=== PATIENT | male | born 1970 | race Caucasian/White ===

== ENCOUNTER → 2017-12-21 09:52 | Outpatient (REF) | payer OTHER, SELFPAY ==
[2017-12-21 14:11] LABS: Anion Gap 12.1 mEq/L (5-15); Blood Urea Nitrogen 12 mg/dL (7-18); Carbon Dioxide 26 mmol/L (21.0-32.0); Chloride 105 mmol/L (98-107); Creatinine,Serum 0.87 mg/dL (0.70-1.30); Estimated Glomerular Filt Rate 94 ml/min (>60); GFR (African American) 114 ML/MIN (>60); Glucose 86 mg/dL (74-106); Potassium 4.1 mmoL/L (3.5-5.1); Sodium 139 mmol/L (136-145)
== END ==
LOC: LAB 09:52
PROVIDERS: Visit Provider Nurse Practitioner Family
DX: R25.2 Cramp and spasm (principal)
CPT/HCPCS: 80048

== ENCOUNTER → 2018-05-19 11:02 | Outpatient (REF) | payer OTHER, SELFPAY ==
[2018-05-19 13:44] LABS: Amphetamine/Metha Screen,Urine Negative ng/mL (<1000); Barbiturates Screen,Urine Negative ng/mL (<200); Benzodiazepines Screen,Urine Negative ng/mL (200); Cannabinoid Screen,Urine Positive ng/mL (<50); Cocaine Screen,Urine Negative ng/g (<300); Methadone Screen,Urine Negative ng/mL (<300); Opiate Screen,Urine Negative ng/mL (<300); Phencyclidine Screen,Urine Negative ng/mL (<25)
== END ==
LOC: LAB 11:02
PROVIDERS: Visit Provider Nurse Practitioner Family
DX: M54.9 Dorsalgia, unspecified (principal); G62.9 Polyneuropathy, unspecified
CPT/HCPCS: 80305

== ENCOUNTER → 2019-02-13 08:24 | Outpatient (CLI) | payer OTHER, SELFPAY ==
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
== END ==
PROVIDERS: PCP Nurse Practitioner Family; Visit Provider Nurse Practitioner Family
DX: R05 Cough (principal)
CPT/HCPCS: 71046

== ENCOUNTER → 2019-03-10 13:43 | Outpatient (CLI) | payer OTHER, SELFPAY ==
[2019-03-10 14:38] LABS: Amphetamine/Metha Screen,Urine Negative ng/mL (<1000); Barbiturates Screen,Urine Negative ng/mL (<200); Benzodiazepines Screen,Urine Negative ng/mL (<200); Cannabinoid Screen,Urine Positive ng/mL (<50); Cocaine Screen,Urine Negative ng/mL (<300); Methadone Screen,Urine Negative ng/mL (<300); Opiate Screen,Urine Positive ng/mL (<300); Phencyclidine Screen,Urine Negative ng/mL (<25)
[2019-03-16 16:11] LABS: Codeine Negative (Cutoff=100); Hydrocodone Positive (.); Hydromorphone Negative (Cutoff=100); Morphine Negative (Cutoff=100)
[2019-03-17 06:18] LABS: Opiates Positive (.)
== END ==
PROVIDERS: Visit Provider Nurse Practitioner Family
DX: Z79.899 Other long term (current) drug therapy (principal); R89.2 Abnormal level of other drugs, medicaments and biological substances in specimens from other organs, systems and tissues
CPT/HCPCS: 80305; 80361; 80365; G0480

== ENCOUNTER 2024-12-29 12:54 | Inpatient (IN) | payer BC, SELFPAY ==
[2024-12-29] VITALS (16 sets, daily range): BP systolic 70–132; BP diastolic 36–74; PULSE 57–126; RESP 15–20; TEMP 36.7–37.6; O2SAT 90–97; BMI 31.3; BMI 29.5
[2024-12-29] MEDS: 0.9 % SODIUM CHLORIDE 1000ML 500 ML 999 ML IV (13:20)
--- NOTE | 2024-12-29 13:23 | ECG_ITS ---
APPROVED REPORT Exam: Resting ECG HR:82 bpm ECG Measurements Heart Rate 82 AXES NE 147 P 78 QRSd 76 QRS 87 QT 327 T 84 QTc 366 Conclusion SINUS RHYTHM WITH SINUS ARRHYTHMIA Electronically signed by : DAVID PRAKASH, 12/30/2024 00:17:17
--- NOTE | 2024-12-29 13:25 | PC.NURSE ---
DR MCCLAIN AT BEDSIDE
--- NOTE | 2024-12-29 13:30 | XR_ITS ---
FINAL REPORT CLINICAL HISTORY: Wheeze, TUD, URI FINDINGS: SINGLE VIEW CHEST The heart is normal in size. The mediastinum is unremarkable. The lungs are clear. There is no pneumothorax. IMPRESSION: No acute process. Reviewed, Interpreted and Dictated by Kali Lowe MD Transcribed by Pari Mcnally Authenticated and [facility]
[2024-12-29 13:33] LABS: Basophils % 0.4 % (0.1-2.0); Eosinophils % 0.2 % (0.1-12.0); Hematocrit 46.2 % (42.0-52.0); Hemoglobin 15.8 g/dL (14.1-18.0); Lymphocytes # 2.5 K/mm3 (0.7-4.5); Lymphocytes % 22.6 % (10-50); Mean Corpuscular HGB Conc 34.2 g/dL (31.8-35.4); Mean Corpuscular Hemoglobin 31.3 pg (27.0-31.2); Mean Corpuscular Volume 91.5 fl (80-94); Mean Platelet Volume 9.5 fl (7.4-10.4); Monocytes # 1.5 K/mm3 (0.1-1.0); Monocytes % 13.7 % (1.7-9.3); Neutrophils # 7.1 K/mm3 (1.8-7.8); Neutrophils % 62.8 % (37.0-80.0); Platelet Count 259 K/mm3 (142-424); Red Blood Count 5.05 M/mm3 (4.60-6.20); Red Cell Distribution Width 12.5 % (11.5-17.5); White Blood Count 11.2 K/mm3 (4.8-10.8)
--- NOTE | 2024-12-29 13:37 | ED_ITS ---
Discharge Plan Disposition Patient Disposition: Admitted Clinical Impressions Clinical Impression: Acute GI bleeding, Duodenitis, Acalculous cholecystitis Discharge ED Provider: Arina Jansen General Adult HPI <Charlotte Germain MD - Last Filed: 12/29/24 15:42> General Chief complaint: Abdominal Pain Stated complaint: weakness, diarrhea and vomiting Time Seen by Provider: 12/29/24 13:17 Mode of Arrival: Wheelchair Source of Information: Patient and Spouse Limitations: No Limitations Description of Symptoms (Recalled from ER Triage Doc. by RN): Abdoinal pain since Wednesday intermittently. Endorses diarrhea. Endorses vomiting. Reports subjective fevers. States he has been taking Ibuprofen, but none today. Endorses bright red blood per rectum. States this is new for him. Patient moaning and restless in wheelchair in triage. History of Present Illness HPI narrative: Patient is a 54-year-old male presenting with multiple complaints. Patient states he has felt poorly all week including body aches, abdominal pain, diarrhea with bright red blood, nausea/vomiting and chills. Patient takes medication for high cholesterol but no other meds. Patient intermittently uses ibuprofen but has not had any today. Patient denies aspirin or blood thinner use. Patient has history of appendicitis, umbilical hernia, prior inguinal hernia repair. Related Data Home Medications ?Medication ?Instructions ?Recorded ?Confirmed budesonide-formoterol HFA 160 1 inh inhalation DAILY 12/29/24 12/29/24 mcg-4.5 mcg/actuation aerosol inhaler (Symbicort) buprenorphine 8 mg-naloxone 2 mg 1 film sublingual DAILY 12/29/24 12/29/24 sublingual film ergocalciferol (vitamin D2) 1,250 1,250 mcg PO DAILY 12/29/24 12/29/24 mcg (50,000 unit) capsule gabapentin 800 mg tablet 800 mg PO TID 12/29/24 12/29/24 rosuvastatin 10 mg tablet 10 mg PO DAILY 12/29/24 12/29/24 testosterone 20.25 mg topical DAILY 12/29/24 12/29/24 Allergies Allergy/AdvReac Type Severity Reaction Status Date / Time No Known Allergies Allergy Verified 12/29/24 14:49 PFSH <Charlotte Germain MD - Last Filed: 12/29/24 15:42> PFS Disclaimer: The information contained in this section may have been updated after the patient was seen, as this information can be updated by other users. Medical History (Updated 12/29/24 @ 16:13 by Arina Jansen DO) Chronic back pain Social History Smoking Status: Current every day smoker tobacco type: cigarettes packs per day: 1 alcohol intake: never substance use type: former substance user current occupational status: employed Travel in the last 8 weeks: None Have you lived/traveled outside US in past 30 days?: No Contact w/someone who lives/traveled outside US past 30 days?: No Exposure to someone with infectious disease in past 14 days?: No Do you have a fever (greater than 100.4 F or 38 C)?: No Have you tested positive for COVID-19: No Exposed to someone with COVID-19 in past 14 days?: No Do you have a sore throat?: No Do you have a cough?: No Do you have any weakness?: Yes Do you have any diarrhea?: Yes Are you experiencing any unusual bleeding?: No Do you have any muscle aches/pain?: No Do you have any abdominal pain?: No Are you experiencing loss of taste or smell?: No Other Medical History Have you received the Flu Vaccine for this season: No Have you received the Pneumonia Vaccine: No <Charlotte Germain MD - Last Filed: 12/29/24 15:42> ROS Obtained: Yes All systems reviewed & no additional complaints except as documented Physical Exam <Charlotte Germain MD - Last Filed: 12/29/24 15:42> General General appearance: alert and in distress Head Head exam: atraumatic, normocephalic and normal inspection Eye Eye exam: Present normal appearance, PERRL and EOMI ENT ENT exam: Present normal exam, normal oropharynx, mucous membranes dry and normal external ear exam Neck Neck exam: Present normal inspection, full ROM and trachea midline; Absent meningismus or lymphadenopathy Chest Chest inspection: Present normal inspection and symmetric chest wall rise; Absent tenderness Respiratory Respiratory exam: Present normal lung sounds bilaterally and wheezes; Absent respiratory distress Cardiovascular Cardiovascular exam: Present regular rate and normal rhythm; Absent JVD Abdominal Exam Abdominal exam: Present soft, distention, tenderness and normal bowel sounds; Absent guarding Abdominal tenderness: Present RLQ Extremities Exam Extremities exam: Present normal inspection, full ROM and normal capillary refill; Absent calf tenderness Back Exam Back exam: Present normal inspection; Absent tenderness Neurological Exam Neurological exam: Present alert and oriented X3 Psychiatric Psychiatric exam: Present normal affect and normal mood Skin Skin exam: Present warm, dry, intact and normal color Lymphatic Lymphatic Findings: no adenopathy Medical Decision Making <Charlotte Germain MD - Last Filed: 12/29/24 15:42> Medical Records Medical records reviewed: Yes I reviewed the patient's medical records. Screening: Per USPSTF and CDC recommendations, given the prevalence of disease in our region, it is our hospital?s policy to screen for HIV and viral Hepatitis for all patients aged 18 and over and those with ongoing risk factors. [place] Inquiry Pt receiving controlled substance: No Vital Signs: 12/29/24 13:05 12/29/24 13:42 12/29/24 14:01 Temperature 98.0 F Temperature Source Oral Pulse Rate 97 H 71 Pulse Rate [Radial] 57 L Respiratory Rate 20 Blood Pressure 112/74 Blood Pressure [Right Arm] 70/36 L Blood Pressure Mean [Right Arm] 47 Blood Pressure Source [Right Arm] Automatic Cuff Blood Pressure Position [Right Arm] Sitting 02 Sat by Pulse Oximetry 96 96 95 Oxygen Delivery Method Room Air 12/29/24 14:30 12/29/24 15:05 12/29/24 15:30 Temperature Temperature Source Pulse Rate 79 115 H 108 H Pulse Rate [Radial] Respiratory Rate 17 15 Blood Pressure 111/72 99/66 L 95/69 L Blood Pressure [Right Arm] Blood Pressure Mean [Right Arm] Blood Pressure Source [Right Arm] Blood Pressure Position [Right Arm] 02 Sat by Pulse Oximetry 95 93 L 94 L Oxygen Delivery Method Room Air Room Air 12/29/24 16:45 12/29/24 16:57 Temperature 98.1 F Temperature Source Pulse Rate 117 H Pulse Rate [Radial] Respiratory Rate 20 16 Blood Pressure 94/64 L 94/64 L Blood Pressure [Right Arm] Blood Pressure Mean [Right Arm] Blood Pressure Source [Right Arm] Blood Pressure Position [Right Arm] 02 Sat by Pulse Oximetry 97 Oxygen Delivery Method Room Air Lab Data Lab results reviewed: Yes I reviewed the patient's lab results. Lab Results 12/29/24 13:22: WBC 11.2 H, RBC 5.05, Hgb 15.8, Hct 46.2, MCV 91.5, MCH 31.3 H, MCHC 34.2, RDW 12.5, Plt Count 259, MPV 9.5, Neut % (Auto) 62.8, Lymph % (Auto) 22.6, [place] % (Auto) 13.7 H, Eos % (Auto) 0.2, Baso % (Auto) 0.4, Neut # (Auto) 7.1, Lymph # (Auto) 2.5, [place] # (Auto) 1.5 H, Eos # (Auto) 0.0, Baso # (Auto) 0.0, PT 10.9, INR 0.99, Sodium 130 L, Potassium 5.1, Chloride 101, Carbon Dioxide 26, Anion Gap 8.1, BUN 39 H, Creatinine 0.90, Estimated Creat Clear 120, Estimated GFR 88, Est GFR ( Amer) 106, Glucose 166 H, Calcium 9.0, Total Bilirubin 0.6, AST 28, ALT 18, Alkaline Phosphatase 57, Total Protein 6.5, Albumin 3.7, Globulin 2.8, Albumin/Globulin Ratio 1.3, Lipase 78 12/29/24 13:35: Blood Type O Positive, Antibody Screen Negative 12/29/24 13:42: VBG pH 7.35, VBG pCO2 43.1, VBG pO2 34.3, VBG HCO3 23.4, VBG Total CO2 24.7, VBG O2 Saturation 63.4, VBG Base Excess -2.2, VBG Lactic Acid 1.6 12/29/24 16:20: Hgb 14.1 D, Hct 39.8 L, Lactate 1.3 12/29/24 16:20 12/29/24 13:22 Orders (Tests/Meds): ED MEDICATIONS Generic Name Dose Route Start Last Admin Trade Name Freq PRN Reason Stop Dose Admin Piperacillin Sod/Tazobactam 100 mls @ 200 mls/hr 12/29/24 17:00 12/29/24 16:53 Sod 4.5 gm/ Sodium Chloride IV 01/08/25 16:59 Not Given Q6H BEENA Pantoprazole Sodium 40 mg 12/29/24 21:00 Pantoprazole 40mg Vial IV 01/28/25 20:59 BID BEENA Sodium Chloride 10 ml 12/29/24 13:55 12/29/24 13:56 Sodium Chloride 0.9% 10ml Syr (Rad Only) IV 01/28/25 13:54 10 ml NEEDED PRN Administration Maintain IV Site Sodium Chloride 10 ml 12/29/24 16:49 Sodium Chloride 0.9% 10ml Vial IV 01/28/25 16:48 NEEDED PRN dilute protonix Discontinued Medications Generic Name Dose Route Start Last Admin Trade Name Freq PRN Reason Stop Dose Admin Sodium Chloride 500 mls @ 999 mls/hr 12/29/24 13:17 12/29/24 13:20 Sod Chlor 0.9% 1000ml Bag IV 12/29/24 13:47 999 mls/hr .Q31M ONE Administration Pantoprazole Sodium 80 mg/ 100 mls @ 100 mls/hr 12/29/24 15:38 12/29/24 16:09 Sodium Chloride IV 12/29/24 16:37 100 mls/hr ONCE ONE Administration Piperacillin Sod/Tazobactam 50 mls @ 100 mls/hr 12/29/24 16:04 12/29/24 16:48 Sod 3.375 gm/ Sodium Chloride IV 12/29/24 16:33 100 mls/hr ONCE ONE Administration Iopamidol 75 ml 12/29/24 13:55 12/29/24 13:56 Iopamidol-370 (76%);100ml Bottle IV 12/29/24 13:56 75 ml ONCE ONE Administration ORDERS Category Date Time Status Type and Screen Stat BBK 12/29/24 13:[address] abdomen pelvis w con Stat Cat Scan 12/29/24 13:47 Completed Gastroenterology Consult [Consult to Gastroenterology] Cons 12/29/24 16:02 Active [CONS] Routine General Surgery Consult [Consult to General Surgery] [ Cons 12/29/24 16:09 Ordered CONS] Stat CXR --portable [XR chest portable] Stat Exams 12/29/24 13:30 Completed US RUQ [US abdomen limited] Stat Exams 12/29/24 15:19 Completed CBC w/Auto Diff [Complete Blood Count Auto Diff] Stat Lab 12/29/24 13:22 Completed CMP [Comprehensive Metabolic Panel] Stat Lab 12/29/24 13:22 Completed Diarrhea 23 Panel, PCR Stat Lab 12/29/24 15:38 Ordered Hemoglobin and Hematocrit Stat Lab 12/29/24 16:20 Completed Hemoglobin and Hematocrit Timed Lab 12/29/24 22:03 Ordered INR [Prothrombin Time INR] Stat Lab 12/29/24 13:22 Completed Lactate Venous Stat Lab 12/29/24 13:42 Ordered Lactic Acid Stat Lab 12/29/24 16:20 Completed Lipase Stat Lab 12/29/24 13:22 Completed Occult Blood,Stool Stat Lab 12/29/24 15:18 Ordered Blood Culture Stat Micro 12/29/24 16:25 Received VBG [Venous Blood Gas] Stat RT 12/29/24 13:42 Completed ECG Data Tracing #1: Sinus rhythm with a rate of 82, no QTc prolongation, no significant ST elevation/depression or evidence of acute ischemia. ECG initial impression date: 12/29/24 ECG initial impression time: 13:23 Medical Decision Narrative: In summary, this is a 54-year-old male presenting with multiple complaints. Patient developed multiple symptoms over the past 4 days to include, myalgias, nausea, vomiting, diarrhea and diffuse abdominal pain that is worse in the right lower quadrant on exam. Patient does not have guarding or peritonitis. Initial presentation in the emergency department with diaphoresis, agitation and generalized uncomfortable appearance associated with an initial hypotensive reading of 70/30. Patient quickly brought to a room and placed on the monitor with IV fluids started. Patient's blood pressure was immediately responsive and patient settled out. Differential diagnosis includes but is not limited to, flu/viral illness, GI bleed, diverticulitis, SBO, among others. Will evaluate with CBC, CMP, lipase, CXR, type and screen and lactic acid. Based on abdominal findings, will perform CT abdomen/pelvis. Patient's labs significant for leukocytosis 11.2, no anemia, no thrombocytopenia. Lactic acid 1.6. CMP non-actionable. Lipase within normal limits. CT abdomen/pelvis personally reviewed by me and significant for slight thickening of the proximal duodenum, no free abdominal fluid for SBO. See final radiologic read for full evaluation. At this time, patient care signed out to oncoming physician pending reevaluation and final disposition <Arina Jansen, DO - Last Filed: 12/29/24 17:47> Vital Signs: 12/29/24 13:05 12/29/24 13:42 12/29/24 14:01 Temperature 98.0 F Temperature Source Oral Pulse Rate 97 H 71 Pulse Rate [Radial] 57 L Respiratory Rate 20 Blood Pressure 112/74 Blood Pressure [Right Arm] 70/36 L Blood Pressure Mean [Right Arm] 47 Blood Pressure Source [Right Arm] Automatic Cuff Blood Pressure Position [Right Arm] Sitting 02 Sat by Pulse Oximetry 96 96 95 Oxygen Delivery Method Room Air 12/29/24 14:30 12/29/24 15:05 12/29/24 15:30 Temperature Temperature Source Pulse Rate 79 115 H 108 H Pulse Rate [Radial] Respiratory Rate 17 15 Blood Pressure 111/72 99/66 L 95/69 L Blood Pressure [Right Arm] Blood Pressure Mean [Right Arm] Blood Pressure Source [Right Arm] Blood Pressure Position [Right Arm] 02 Sat by Pulse Oximetry 95 93 L 94 L Oxygen Delivery Method Room Air Room Air 12/29/24 16:45 12/29/24 16:57 Temperature 98.1 F Temperature Source Pulse Rate 117 H Pulse Rate [Radial] Respiratory Rate 20 16 Blood Pressure 94/64 L 94/64 L Blood Pressure [Right Arm] Blood Pressure Mean [Right Arm] Blood Pressure Source [Right Arm] Blood Pressure Position [Right Arm] 02 Sat by Pulse Oximetry 97 Oxygen Delivery Method Room Air Lab Data Lab Results 12/29/24 13:22: WBC 11.2 H, RBC 5.05, Hgb 15.8, Hct 46.2, MCV 91.5, MCH 31.3 H, MCHC 34.2, RDW 12.5, Plt Count 259, MPV 9.5, Neut % (Auto) 62.8, Lymph % (Auto) 22.6, [place] % (Auto) 13.7 H, Eos % (Auto) 0.2, Baso % (Auto) 0.4, Neut # (Auto) 7.1, Lymph # (Auto) 2.5, [place] # (Auto) 1.5 H, Eos # (Auto) 0.0, Baso # (Auto) 0.0, PT 10.9, INR 0.99, Sodium 130 L, Potassium 5.1, Chloride 101, Carbon Dioxide 26, Anion Gap 8.1, BUN 39 H, Creatinine 0.90, Estimated Creat Clear 120, Estimated GFR 88, Est GFR ( Amer) 106, Glucose 166 H, Calcium 9.0, Total Bilirubin 0.6, AST 28, ALT 18, Alkaline Phosphatase 57, Total Protein 6.5, Albumin 3.7, Globulin 2.8, Albumin/Globulin Ratio 1.3, Lipase 78 12/29/24 13:35: Blood Type O Positive, Antibody Screen Negative 12/29/24 13:42: VBG pH 7.35, VBG pCO2 43.1, VBG pO2 34.3, VBG HCO3 23.4, VBG Total CO2 24.7, VBG O2 Saturation 63.4, VBG Base Excess -2.2, VBG Lactic Acid 1.6 12/29/24 16:20: Hgb 14.1 D, Hct 39.8 L, Lactate 1.3 Orders (Tests/Meds): ED MEDICATIONS Generic Name Dose Route Start Last Admin Trade Name Freq PRN Reason Stop Dose Admin Piperacillin Sod/Tazobactam 100 mls @ 200 mls/hr 12/29/24 17:00 12/29/24 16:53 Sod 4.5 gm/ Sodium Chloride IV 01/08/25 16:59 Not Given Q6H BEENA Pantoprazole Sodium 40 mg 12/29/24 21:00 Pantoprazole 40mg Vial IV 01/28/25 20:59 BID BEENA Sodium Chloride 10 ml 12/29/24 13:55 12/29/24 13:56 Sodium Chloride 0.9% 10ml Syr (Rad Only) IV 01/28/25 13:54 10 ml NEEDED PRN Administration Maintain IV Site Sodium Chloride 10 ml 12/29/24 16:49 Sodium Chloride 0.9% 10ml Vial IV 01/28/25 16:48 NEEDED PRN dilute protonix Discontinued Medications Generic Name Dose Route Start Last Admin Trade Name Freq PRN Reason Stop Dose Admin Sodium Chloride 500 mls @ 999 mls/hr 12/29/24 13:17 12/29/24 13:20 Sod Chlor 0.9% 1000ml Bag IV 12/29/24 13:47 999 mls/hr .Q31M ONE Administration Pantoprazole Sodium 80 mg/ 100 mls @ 100 mls/hr 12/29/24 15:38 12/29/24 16:09 Sodium Chloride IV 12/29/24 16:37 100 mls/hr ONCE ONE Administration Piperacillin Sod/Tazobactam 50 mls @ 100 mls/hr 12/29/24 16:04 12/29/24 16:48 Sod 3.375 gm/ Sodium Chloride IV 12/29/24 16:33 100 mls/hr ONCE ONE Administration Iopamidol 75 ml 12/29/24 13:55 12/29/24 13:56 Iopamidol-370 (76%);100ml Bottle IV 12/29/24 13:56 75 ml ONCE ONE Administration ORDERS Category Date Time Status Type and Screen Stat BBK 12/29/24 13:[address] abdomen pelvis w con Stat Cat Scan 12/29/24 13:47 Completed Gastroenterology Consult [Consult to Gastroenterology] Cons 12/29/24 16:02 Active [CONS] Routine General Surgery Consult [Consult to General Surgery] [ Cons 12/29/24 16:09 Ordered CONS] Stat CXR --portable [XR chest portable] Stat Exams 12/29/24 13:30 Completed US RUQ [US abdomen limited] Stat Exams 12/29/24 15:19 Completed CBC w/Auto Diff [Complete Blood Count Auto Diff] Stat Lab 12/29/24 13:22 Completed CMP [Comprehensive Metabolic Panel] Stat Lab 12/29/24 13:22 Completed Diarrhea 23 Panel, PCR Stat Lab 12/29/24 15:38 Ordered Hemoglobin and Hematocrit Stat Lab 12/29/24 16:20 Completed Hemoglobin and Hematocrit Timed Lab 12/29/24 22:03 Ordered INR [Prothrombin Time INR] Stat Lab 12/29/24 13:22 Completed Lactate Venous Stat Lab 12/29/24 13:42 Ordered Lactic Acid Stat Lab 12/29/24 16:20 Completed Lipase Stat Lab 12/29/24 13:22 Completed Occult Blood,Stool Stat Lab 12/29/24 15:18 Ordered Blood Culture Stat Micro 12/29/24 16:25 Received VBG [Venous Blood Gas] Stat RT 12/29/24 13:42 Completed Medical Decision Narrative: In summary, this is a 54-year-old male presenting with multiple complaints. Patient developed multiple symptoms over the past 4 days to include, myalgias, nausea, vomiting, diarrhea and diffuse abdominal pain that is worse in the right lower quadrant on exam. Patient does not have guarding or peritonitis. Initial presentation in the emergency department with diaphoresis, agitation and generalized uncomfortable appearance associated with an initial hypotensive reading of 70/30. Patient quickly brought to a room and placed on the monitor with IV fluids started. Patient's blood pressure was immediately responsive and patient settled out. Differential diagnosis includes but is not limited to, flu/viral illness, GI bleed, diverticulitis, SBO, among others. Will evaluate with CBC, CMP, lipase, CXR, type and screen and lactic acid. Based on abdominal findings, will perform CT abdomen/pelvis. Patient's labs significant for leukocytosis 11.2, no anemia, no thrombocytopenia. Lactic acid 1.6. CMP non-actionable. Lipase within normal limits. CT abdomen/pelvis personally reviewed by me and significant for slight thickening of the proximal duodenum, no free abdominal fluid for SBO. See final radiologic read for full evaluation. At this time, patient care signed out to oncoming physician pending reevaluation and final disposition DO Inderjit: I assumed care of the patient at 1500 at time of departure previous provider. CT scan concerning for possible acalculous cholecystitis, but ultrasound just demonstrates a contracted gallbladder. Patient does have abdominal pain, nausea, vomiting, leukocytosis. He had a very large bloody bowel movement here and states that that started today. I am concern for GI bleed at this time with CT scan also showing duodenitis/possible peptic ulcer disease. I loaded the patient with PPI, and given the possible concern for acalculous cholecystitis I went ahead and gave him IV Zosyn as well. I had an interactive discussion with both Dr. Ceballos with GI and Dr. Knott with general surgery who are on board for potential endoscopy/cholecystectomy respectively. Patient currently hemodynamically stable with initial hemoglobin greater than 15. Given this, I feel he stable for admission. I had an interactive discussion with the hospitalist who admitted the patient. Critical Care <Charlotte Germain MD - Last Filed: 12/29/24 15:42> Critical Care Time Critical Care Time: No
[2024-12-29 13:41] LABS: Alanine Aminotransferase 18 U/L (12-78); Albumin Level 3.7 g/dl (3.5-5.0); Albumin/Globulin Ratio 1.3 (1.1-1.8); Alkaline Phosphatase 57 U/L (38-126); Anion Gap 8.1 mEq/L (5-15); Aspartate Amino Transferase 28 U/L (17-59); Bilirubin,Total 0.6 mg/dl (0.2-1.3); Blood Urea Nitrogen 39 mg/dl (9-20); Carbon Dioxide 26 mmol/L (22.0-30.0); Chloride 101 mmol/L (98-107); Creatinine Clearance Estimated 120 mL/min (50-200); Estimated Glomerular Filt Rate 88 ml/min (>60); GFR (African American) 106 ML/MIN (>60); Globulin 2.8 g/dL (1.3-3.2); Glucose 166 mg/dl (74-100); Lipase 78 U/L (23-300); Potassium 5.1 mmoL/L (3.5-5.1); Sodium 130 mmol/L (136-145); Total Protein,Serum 6.5 g/dl (6.3-8.2)
--- NOTE | 2024-12-29 13:42 | PC.NURSE ---
XR AT BEDSIDE
[2024-12-29 13:46] LABS: Lactate Venous 1.6 mmol/L (0.4-2.0); VBG Base Excess -2.2 mmol/L (-2.4-2.3); VBG HCO3 23.4 mmol/L (23-30); VBG Oxygen Saturation 63.4 % (50-70); VBG PCO2 43.1 mmol/L (35-51); VBG PH 7.35 mmol/L (7.31-7.41); VBG PO2 34.3 mmol/L (28-40); VBG Total CO2 24.7 mmol/L (23-27)
--- NOTE | 2024-12-29 13:47 | CT_ITS ---
FINAL REPORT TECHNIQUE: After the administration of intravenous contrast, axial images were obtained through the abdomen and pelvis by computed tomography. The study was performed with techniques to keep radiation dose as low as reasonably achievable, (ALARA). Individual dose reduction techniques using automated exposure control or adjustment of mA and/or kV according to the patient's size were employed. CLINICAL HISTORY: RLQ abd pain, hx appendectomy FINDINGS: Abdomen: The lung bases are clear. The liver parenchyma is homogeneous. The gallbladder is contracted. There is gallbladder wall thickening. Mild inflammatory reaction is seen surrounding the gallbladder. The spleen, pancreas, adrenals and kidneys appear unremarkable. The aorta is normal in caliber. There is no free fluid or adenopathy. There is a fat-containing umbilical hernia. Hernia defect measures 2.5 cm. Pelvis: The appendix is not identified. There is mucosal thickening of the first and second portions of the duodenum of uncertain significance. The urinary bladder is incompletely distended. There is no free fluid or adenopathy. IMPRESSION: Gallbladder wall thickening with mild surrounding inflammatory reaction concerning for acalculous cholecystitis. Mucosal thickening of the first and second portions of the duodenum, may be due to duodenitis or peptic ulcer disease. Reviewed, Interpreted and Dictated by Kali Lowe MD Transcribed by Pari Mcnally Authenticated and [facility]
[2024-12-29] MEDS: SODIUM CHLORIDE 0.9% 10ML SYR (RAD ONLY) 10 ML IV (13:56)
[2024-12-29] MEDS: IOPAMIDOL-370 (76%);100ML BOTTLE 75 ML IV (13:56)
--- NOTE | 2024-12-29 15:19 | US_ITS ---
PROCEDURE INFORMATION: Exam: US Abdomen, Limited; Right Upper Quadrant Exam date and time: 12/29/2024 3:31 PM Age: 54 years old Clinical indication: Nausea and vomiting; Additional info: Pain, abnormal gallbladder on CT TECHNIQUE: Imaging protocol: Real time ultrasound of the abdomen with image documentation. Limited exam focused on the right upper quadrant. COMPARISON: CT ABDOMEN PELVIS W CON 12/29/2024 1:55 PM FINDINGS: Liver: Echogenic liver with poor acoustic transmission, likely fibrofatty changes. Gallbladder: The gallbladder is contracted but otherwise unremarkable. Biliary ducts: Common bile duct diameter is 3 mm. Pancreas: The pancreas is poorly-visualized due to overlying bowel gas. Right kidney: Right kidney 11.6 x 6.3 x 6.5 cm. No right-sided hydronephrosis. Portal venous: Doppler demonstrates hepatopedal blood flow in the portal vein. IMPRESSION: 1. Echogenic liver with poor acoustic transmission, likely fibrofatty changes. 2. The gallbladder is contracted but otherwise unremarkable. No acute cholecystitis. 3. When correlated with associated CT abdomen pelvis, duodenitis/peptic ulcer disease is favored.
--- NOTE | 2024-12-29 15:47 | PC.NURSE ---
pt to US via wheelchair
[2024-12-29 15:54] LABS: INR 0.99 (0.9-1.1); Prothrombin Time 10.9 seconds (9.2-12.1)
--- NOTE | 2024-12-29 15:57 | PC.NURSE ---
pt back to room
--- NOTE | 2024-12-29 15:58 | PC.NURSE ---
dr ylons at bedside to evaluate pt
--- NOTE | 2024-12-29 16:00 | PC.NURSE ---
DR PRAKASH SPEAKING WITH DR WAGONER
--- NOTE | 2024-12-29 16:04 | PC.NURSE ---
GENERAL SURGERY PAGED
--- NOTE | 2024-12-29 16:04 | PC.NURSE ---
DR PRAKASH SPEAKING WITH DR ARANDA
[2024-12-29] MEDS: PANTOPRAZOLE SODIUM 80 MG in 0.9 % SODIUM CHLORIDE 100 ML 100 MG IV (16:09)
--- NOTE | 2024-12-29 16:29 | PC.NURSE ---
lead worker of housekeeping and laundry called for bed placement
[2024-12-29 16:31] LABS: Hematocrit 39.8 % (42.0-52.0)
--- NOTE | 2024-12-29 16:42 | PC.NURSE ---
report called to odilon on second floor
[2024-12-29] MEDS: PIPERACILLIN/TAZO 3.375 GM in 0.9 % SODIUM CHLORIDE 50 ML IV (16:48)
[2024-12-29 16:57] LABS: Hemoglobin 14.1 g/dL (14.1-18.0)
[2024-12-29 16:59] LABS: Lactic Acid 1.3 mmol/L (0.7-2.1)
--- NOTE | 2024-12-29 18:08 | P.HP_ITS ---
History of Present Illness *Admission Date: 12/29/24 *Reason for visit:: Bloody stool *History of present illness: Carlo Lamar is a 54-year-old male with a medical history significant for COPD on room air, low back pain and former opioid use because of it on Suboxone who presents with 3-day onset of nausea/vomiting, diarrhea. Diarrhea became bloody this morning which prompted patient to come to the ED. Denies abdominal pain, hematemesis, use of NSAIDs, alcohol use. Patient was hypotensive 70/36 on arrival which self resolved. BUN 39 out of proportion to creatinine 0.90, stool occult positive. CT abdomen/pelvis showed mucosal thickening of the first and second portion of the duodenum. Type and screen. ED reached out to GI and general surgery, and general surgery will scope patient in the morning. Case discussed with ED provider and decision was made to admit patient for suspected upper GI bleed. [facility] Disclaimer: The information contained in this section may have been updated after the patient was seen, as this information can be updated by other users. Medical History (Updated 12/29/24 @ 16:13 by Arina Jansen DO) Chronic back pain Social History Smoking Status: Current every day smoker tobacco type: cigarettes packs per day: 1 alcohol intake: never substance use type: former substance user current occupational status: employed Travel in the last 8 weeks: None Have you lived/traveled outside US in past 30 days?: No Contact w/someone who lives/traveled outside US past 30 days?: No Exposure to someone with infectious disease in past 14 days?: No Do you have a fever (greater than 100.4 F or 38 C)?: No Have you tested positive for COVID-19: No Exposed to someone with COVID-19 in past 14 days?: No Do you have a sore throat?: No Do you have a cough?: No Do you have any weakness?: Yes Do you have any diarrhea?: Yes Are you experiencing any unusual bleeding?: No Do you have any muscle aches/pain?: No Do you have any abdominal pain?: No Are you experiencing loss of taste or smell?: No Other Medical History Have you received the Flu Vaccine for this season: Yes Have you received the Pneumonia Vaccine: No Meds Home Medications and Allergies Home Medications ?Medication ?Instructions ?Recorded ?Confirmed ?Type budesonide-formoterol HFA 160 1 inh inhalation DAILY 12/29/24 12/29/24 History mcg-4.5 mcg/actuation aerosol inhaler (Symbicort) buprenorphine 8 mg-naloxone 2 mg 1 film sublingual DAILY 12/29/24 12/29/24 History sublingual film ergocalciferol (vitamin D2) 1,250 1,250 mcg PO DAILY 12/29/24 12/29/24 History mcg (50,000 unit) capsule gabapentin 800 mg tablet 800 mg PO TID 12/29/24 12/29/24 History rosuvastatin 10 mg tablet 10 mg PO DAILY 12/29/24 12/29/24 History testosterone 20.25 mg topical DAILY 12/29/24 12/29/24 History New Prescriptions to Start Prescriptions: Allergies Allergy/AdvReac Type Severity Reaction Status Date / Time No Known Allergies Allergy Verified 12/29/24 14:49 Exam Data for Last 24 hours Vital signs and Labs for Last 24 Hours: Temp Pulse Resp BP Pulse Ox O2 Del Method 99.6 F 126 H 18 94/64 L 96 Room Air 12/29/24 17:21 12/29/24 17:40 12/29/24 17:02 12/29/24 17:02 12/29/24 17:40 12/29/24 17:40 Laboratory Results - last 24 hr 12/29/24 13:22: WBC 11.2 H, RBC 5.05, Hgb 15.8, Hct 46.2, MCV 91.5, MCH 31.3 H, MCHC 34.2, RDW 12.5, Plt Count 259, MPV 9.5, Neut % (Auto) 62.8, Lymph % (Auto) 22.6, [place] % (Auto) 13.7 H, Eos % (Auto) 0.2, Baso % (Auto) 0.4, Neut # (Auto) 7.1, Lymph # (Auto) 2.5, [place] # (Auto) 1.5 H, Eos # (Auto) 0.0, Baso # (Auto) 0.0, PT 10.9, INR 0.99, Sodium 130 L, Potassium 5.1, Chloride 101, Carbon Dioxide 26, Anion Gap 8.1, BUN 39 H, Creatinine 0.90, Estimated Creat Clear 120, Estimated GFR 88, Est GFR ( Amer) 106, Glucose 166 H, Calcium 9.0, Total Bilirubin 0.6, AST 28, ALT 18, Alkaline Phosphatase 57, Total Protein 6.5, Albumin 3.7, Globulin 2.8, Albumin/Globulin Ratio 1.3, Lipase 78 12/29/24 13:35: Blood Type O Positive, Antibody Screen Negative 12/29/24 13:42: VBG pH 7.35, VBG pCO2 43.1, VBG pO2 34.3, VBG HCO3 23.4, VBG Total CO2 24.7, VBG O2 Saturation 63.4, VBG Base Excess -2.2, VBG Lactic Acid 1.6 12/29/24 16:20: Hgb 14.1 D, Hct 39.8 L, Lactate 1.3 I & O for Last 24 hours: Intake & Output 12/26/24 12/27/24 12/28/24 12/29/24 23:59 23:59 23:59 23:59 Weight 85.445 kg Constitutional Constitutional: no acute distress *Routine HEENT Exam Head: Present normocephalic Eye: Present EOMI and PERRL ENT: Present mucous membranes moist *Routine Neck Exam Neck: Present supple; Absent lymphadenopathy *Routine Respiratory Exam Respiratory: Present CTA bilaterally *Routine Cardiovascular Exam Cardiovascular: Present RRR *Routine Abdominal Exam Abdominal: Present soft and normoactive bowel sounds; Absent tenderness *Routine Rectal Exam Rectal:: deferred *Routine Genitalia Exam Genitalia:: deferred *Routine Extremities Exam Extremities: Absent cyanosis, clubbing or edema *Routine Skin Exam Skin: Present warm; Absent rash *Routine Neurological Exam Neurological: Present alert and oriented X3 Assessment and Plan *Assessment and plan (1) Acalculous cholecystitis: Status: Acute Category: Medical Code(s): K81.9 - Cholecystitis, unspecified (2) Duodenitis: Status: Acute Category: Medical Code(s): K29.80 - Duodenitis without bleeding (3) Acute GI bleeding: Status: Acute Category: Medical Code(s): K92.2 - Gastrointestinal hemorrhage, unspecified Plan Carlo Lamar is a 54-year-old male with a medical history significant for COPD on room air, low back pain and former opioid use because of it on Suboxone who presents with 3-day onset of nausea/vomiting, diarrhea. Diarrhea became bloody this morning which prompted patient to come to the ED. Denies abdominal pain, hematemesis, use of NSAIDs, alcohol use. Patient was hypotensive 70/36 on arrival which self resolved. Hemoglobin 14.1, BUN 39 out of proportion to creatinine 0.90, stool occult positive. CT abdomen/pelvis showed mucosal thickening of the first and second portion of the duodenum. Type and screen. ED reached out to GI and general surgery, and general surgery will scope patient in the morning. Case discussed with ED provider and decision was made to admit patient for suspected upper GI bleed. #Suspected upper GI bleed #Bright red blood per rectum ? Several day onset of nausea/vomiting/diarrhea became bloody this morning. Another episode on arrival. Blood red blood. ? Hemoglobin 14.1, however BUN 39 out of proportion to creatinine 0.90. ? CT abdomen/pelvis showed mucosal thickening of the first and second portion of the duodenum. ? Currently tachycardic 120, BP 106/68. However, looks dry. Will give an additional 1 L NS bolus. ? Continue IV Protonix drip. IV Protonix 80 mg given in the ED. ? IV NS at 125 mL/h. ? Follow-up H/H at 8 PM. ? Typed and screened. ? N.p.o. at midnight, general surgery planning for scope in the morning. #Acalculous cholecystitis ? Suggested by CT abdomen/pelvis. Does have nausea/vomiting, but no tenderness to palpation in the RUQ. ? General Surgery consulted, pending further recommendations. #COPD exacerbation ? Moderate wheezing in all lung duran. Increased nonproductive cough. ? Levalbuterol and ipratropium every 6 hours, Pulmicort twice daily ? Avoiding steroids in the setting of GI bleed. ? Will hold off on antibiotics given nonproductive cough. #Low back pain ? Resume home Suboxone, gabapentin. Full code DVT prophylaxis: SCDs.
[2024-12-29 18:27] LABS: Adenovirus F 40/41, stool Not Detected (NotDetected); Astrovirus Not Detected (NotDetected); Campylobacter Not Detected (NotDetected); Clostridium Difficile A/B, PCR Not Detected (NotDetected); Cryptosporidium Not Detected (NotDetected); Cyclospora Cayetanesis Not Detected (NotDetected); Entamoeba histolytica Not Detected (NotDetected); Enteroaggregative E coli Not Detected (NotDetected); Enteropathogenic E coli Not Detected (NotDetected); Enterotoxigenic E coli Not Detected (NotDetected); Giardia lamblia Not Detected (NotDetected); Norovirus Not Detected (NotDetected); Plesimonas Shigalloides, PCR Not Detected (NotDetected); Rotavirus A Not Detected (NotDetected); Salmonella, PCR Not Detected (NotDetected); Sapovirus Not Detected (NotDetected); Shiga-like toxin E coli Not Detected (NotDetected); Shigella Enterovasive E coli Not Detected (NotDetected); Vibrio Cholerae Not Detected (NotDetected); Vibrio, PCR Not Detected (NotDetected); Yersinia Entercolitica, PCR Not Detected (NotDetected)
[2024-12-29 18:40] LABS: Occult Blood,Stool Positive (Negative)
[2024-12-29] MEDS: BUDESONIDE 0.5MG/2ML NEB 0.5 MG IH (18:57)
[2024-12-29] MEDS: LACTATED RINGERS 1000ML 1,000 ML 999 ML IV (19:01)
[2024-12-29] MEDS: LACTATED RINGERS 1000ML 1,000 ML 125 ML IV (20:02)
[2024-12-29] MEDS: PANTOPRAZOLE SODIUM 80 MG in 0.9 % SODIUM CHLORIDE 100 ML 10 MG IV (20:02)
[2024-12-29 20:19] LABS: Hematocrit 34.6 % (42.0-52.0)
[2024-12-29 20:41] LABS: Hemoglobin 11.8 g/dL (14.1-18.0)
[2024-12-29] MEDS: GABAPENTIN 800MG TABLET 800 MG PO (21:30)
[2024-12-29] MEDS: MELATONIN 5MG TABLET 5 MG PO (21:30)
[2024-12-29] MEDS: LEVALBUTEROL 1.25MG/3ML NEB 1.25 MG IH (23:05)
[2024-12-29] MEDS: IPRATROPIUM BROMIDE 0.5 MG/2.5ML SOLUTION IH (23:05)
[2024-12-29] MEDS: PIPERACILLIN/TAZO 4.5 GM in 0.9 % SODIUM CHLORIDE 100 ML IV (23:54)
[2024-12-30] VITALS (30 sets, daily range): BP systolic 101–160; BP diastolic 57–91; PULSE 66–105; RESP 12–20; TEMP 36.2–37.2; O2SAT 90–98; BMI 30.8
[2024-12-30] MEDS: LACTATED RINGERS 1000ML 1,000 ML 125 ML IV (04:00)
--- NOTE | 2024-12-30 04:38 | PC.NURSE ---
Addendum entered by Jenny Cooper RN 12/30/24 04:43: Pt lung sounds expiratory wheezing throughout. Original Note: Patient is alert and oriented. Ambulates to the restroom with standby. No stools this shift. Abdomen tender on palpation. Patient states he feels better than he was. IV abx, fluids, protonix gtt. NPO since midnight. Surg consulted, has not spoken to patient, consent is on the chart, but not signed at this time. Patient has had no complaints throughout the night. Patient was placed on 2L NC, when sleeping patient would desat to 87%. Call light in reach.
[2024-12-30] MEDS: PANTOPRAZOLE SODIUM 80 MG in 0.9 % SODIUM CHLORIDE 100 ML 10 MG IV (05:10)
[2024-12-30] MEDS: PIPERACILLIN/TAZO 4.5 GM in 0.9 % SODIUM CHLORIDE 100 ML IV ×4 (05:10→22:34)
[2024-12-30 05:59] LABS: Basophils % 0.2 % (0.1-2.0); Eosinophils % 0.1 % (0.1-12.0); Hematocrit 28.6 % (42.0-52.0); Lymphocytes # 2.7 K/mm3 (0.7-4.5); Lymphocytes % 25.7 % (10-50); Mean Corpuscular HGB Conc 34.6 g/dL (31.8-35.4); Mean Corpuscular Hemoglobin 31.5 pg (27.0-31.2); Mean Corpuscular Volume 91.1 fl (80-94); Mean Platelet Volume 9.8 fl (7.4-10.4); Monocytes # 1.3 K/mm3 (0.1-1.0); Monocytes % 12.2 % (1.7-9.3); Neutrophils # 6.4 K/mm3 (1.8-7.8); Neutrophils % 61.4 % (37.0-80.0); Platelet Count 199 K/mm3 (142-424); Red Blood Count 3.14 M/mm3 (4.60-6.20); Red Cell Distribution Width 12.7 % (11.5-17.5); White Blood Count 10.4 K/mm3 (4.8-10.8)
[2024-12-30 06:04] LABS: Hemoglobin 9.9 g/dL (14.1-18.0)
[2024-12-30 06:06] LABS: Albumin Level 2.9 g/dl (3.5-5.0); Chloride 105 mmol/L (98-107); Potassium 4.4 mmoL/L (3.5-5.1); Sodium 134 mmol/L (136-145)
[2024-12-30 06:09] LABS: Alanine Aminotransferase 15 U/L (12-78); Albumin/Globulin Ratio 1.3 (1.1-1.8); Alkaline Phosphatase 42 U/L (38-126); Anion Gap 10.4 mEq/L (5-15); Aspartate Amino Transferase 22 U/L (17-59); Bilirubin,Total 0.4 mg/dl (0.2-1.3); Blood Urea Nitrogen 33 mg/dl (9-20); Calcium 7.7 mg/dl (8.4-10.2); Carbon Dioxide 23 mmol/L (22.0-30.0); Creatinine Clearance Estimated 107 mL/min (50-200); Estimated Glomerular Filt Rate 78 ml/min (>60); GFR (African American) 94 ML/MIN (>60); Globulin 2.2 g/dL (1.3-3.2); Glucose 100 mg/dl (74-100); Total Protein,Serum 5.1 g/dl (6.3-8.2)
[2024-12-30 06:10] LABS: Magnesium 1.6 mg/dl (1.6-2.3)
[2024-12-30] MEDS: BUDESONIDE 0.5MG/2ML NEB 0.5 MG IH ×2 (06:19→18:57)
[2024-12-30] MEDS: IPRATROPIUM BROMIDE 0.5 MG/2.5ML SOLUTION IH ×4 (06:19→23:29)
[2024-12-30] MEDS: LEVALBUTEROL 1.25MG/3ML NEB 1.25 MG IH ×4 (06:19→23:29)
--- NOTE | 2024-12-30 07:08 | P.CONS_ITS ---
History of Present Illness *Admission Date: 12/29/24 *Reason for visit:: Gastrointestinal hemorrhage; possible biliary disease *History of present illness: This is a 54-year-old gentleman who presented to the emergency department with a 3-day history of nausea, vomiting, and diarrhea. Some vague abdominal discomfort but no specific pain (specifically no right upper quadrant pain). No fevers. No jaundice. Please see HPI forwarded from admission H&P below. Forwarded from admission H&P: Carlo Lamar is a 54-year-old male with a medical history significant for COPD on room air, low back pain and former opioid use because of it on Suboxone who presents with 3-day onset of nausea/vomiting, diarrhea. Diarrhea became bloody this morning which prompted patient to come to the ED. Denies abdominal pain, hematemesis, use of NSAIDs, alcohol use. Patient was hypotensive 70/36 on arrival which self resolved. BUN 39 out of proportion to creatinine 0.90, stool occult positive. CT abdomen/pelvis showed mucosal thickening of the first and second portion of the duodenum. Type and screen. ED reached out to GI and general surgery, and general surgery will scope patient in the morning. Case discussed with ED provider and decision was made to admit patient for suspected upper GI bleed. [facility] Disclaimer: The information contained in this section may have been updated after the patient was seen, as this information can be updated by other users. Medical History (Updated 12/30/24 @ 07:10 by Isaías Tomlin MD) Chronic back pain Social History Smoking Status: Current every day smoker tobacco type: cigarettes packs per day: 1 alcohol intake: never substance use type: former substance user current occupational status: employed Travel in the last 8 weeks: None Have you lived/traveled outside US in past 30 days?: No Contact w/someone who lives/traveled outside US past 30 days?: No Exposure to someone with infectious disease in past 14 days?: No Do you have a fever (greater than 100.4 F or 38 C)?: No Have you tested positive for COVID-19: No Exposed to someone with COVID-19 in past 14 days?: No Do you have a sore throat?: No Do you have a cough?: No Do you have any weakness?: Yes Do you have any diarrhea?: Yes Are you experiencing any unusual bleeding?: No Do you have any muscle aches/pain?: No Do you have any abdominal pain?: No Are you experiencing loss of taste or smell?: No Meds Home Medications and Allergies Home Medications ?Medication ?Instructions ?Recorded ?Confirmed ?Type budesonide-formoterol HFA 160 1 inh inhalation DAILY 12/29/24 12/29/24 History mcg-4.5 mcg/actuation aerosol inhaler (Symbicort) buprenorphine 8 mg-naloxone 2 mg 1 film sublingual DAILY 12/29/24 12/29/24 History sublingual film ergocalciferol (vitamin D2) 1,250 1,250 mcg PO DAILY 12/29/24 12/29/24 History mcg (50,000 unit) capsule gabapentin 800 mg tablet 800 mg PO TID 12/29/24 12/29/24 History rosuvastatin 10 mg tablet 10 mg PO DAILY 12/29/24 12/29/24 History testosterone 20.25 mg topical DAILY 12/29/24 12/29/24 History New Prescriptions to Start Prescriptions: Allergies Allergy/AdvReac Type Severity Reaction Status Date / Time No Known Allergies Allergy Verified 12/29/24 14:49 Exam (Inpt) Vital signs and Labs for Last 24 Hours: Temp Pulse Resp BP Pulse Ox O2 Del Method O2 Flow Rate 98.0 F 91 H 12 123/72 97 Nasal Cannula 2 12/30/24 04:00 12/30/24 06:20 12/30/24 06:00 12/30/24 06:00 12/30/24 06:20 12/30/24 06:41 12/30/24 06:41 Laboratory Results - last 24 hr 12/29/24 13:22: WBC 11.2 H, RBC 5.05, Hgb 15.8, Hct 46.2, MCV 91.5, MCH 31.3 H, MCHC 34.2, RDW 12.5, Plt Count 259, MPV 9.5, Neut % (Auto) 62.8, Lymph % (Auto) 22.6, [place] % (Auto) 13.7 H, Eos % (Auto) 0.2, Baso % (Auto) 0.4, Neut # (Auto) 7.1, Lymph # (Auto) 2.5, [place] # (Auto) 1.5 H, Eos # (Auto) 0.0, Baso # (Auto) 0.0, PT 10.9, INR 0.99, Sodium 130 L, Potassium 5.1, Chloride 101, Carbon Dioxide 26, Anion Gap 8.1, BUN 39 H, Creatinine 0.90, Estimated Creat Clear 120, Estimated GFR 88, Est GFR ( Amer) 106, Glucose 166 H, Calcium 9.0, Total Bilirubin 0.6, AST 28, ALT 18, Alkaline Phosphatase 57, Total Protein 6.5, Albumin 3.7, Globulin 2.8, Albumin/Globulin Ratio 1.3, Lipase 78 12/29/24 13:35: Blood Type O Positive, Antibody Screen Negative 12/29/24 13:42: VBG pH 7.35, VBG pCO2 43.1, VBG pO2 34.3, VBG HCO3 23.4, VBG Total CO2 24.7, VBG O2 Saturation 63.4, VBG Base Excess -2.2, VBG Lactic Acid 1.6 12/29/24 16:20: Hgb 14.1 D, Hct 39.8 L, Lactate 1.3 12/29/24 18:23: Stool Occult Blood Positive A, Stl Aeromonas (PCR) Not detected, Stl C. cayetanensis PCR Not detected, Stool Rotavirus (PCR) Not detected, Stl Adenov F 40/41 PCR Not detected, Stool Astrovirus (PCR) Not detected, Stool Campylobacter PCR Not detected, Stl C.difficile Tox PCR Not detected, Stool Cryptosporidium PCR Not detected, Stl E.coli Shiga Tox PCR Not detected, Stool E coli O157 PCR Not detected, Stl Enterotoxigenic E PCR Not detected, Stool EPEC (PCR) Not detected, Stool EAEC (PCR) Not detected, Stl E. histolytica PCR Not detected, Stool Giardia Lamblia PCR Not detected, Stool Salmonella PCR Not detected, Stool Sapovirus (PCR) Not detected, Stl P. shigelloides PCR Not detected, Stl Shigella/EIEC PCR Not detected, St Y.enterocolitica PCR Not detected, Stool Vibrio (PCR) Not detected, Stl Vibrio cholerae PCR Not detected, Stl Norovirus GI/GII PCR Not detected 12/29/24 20:04: Hgb 11.8 L D, Hct 34.6 L 12/30/24 05:35: WBC 10.4, RBC 3.14 L D, Hgb 9.9 L D, Hct 28.6 L, MCV 91.1, MCH 31.5 H, MCHC 34.6, RDW 12.7, Plt Count 199, MPV 9.8, Neut % (Auto) 61.4, Lymph % (Auto) 25.7, [place] % (Auto) 12.2 H, Eos % (Auto) 0.1, Baso % (Auto) 0.2, Neut # (Auto) 6.4, Lymph # (Auto) 2.7, [place] # (Auto) 1.3 H, Eos # (Auto) 0.0, Baso # (Auto) 0.0, Sodium 134 L, Potassium 4.4, Chloride 105, Carbon Dioxide 23, Anion Gap 10.4, BUN 33 H, Creatinine 1.00, Estimated Creat Clear 107, Estimated GFR 78, Est GFR ( Amer) 94, Glucose 100 D, Calcium 7.7 L, Magnesium 1.6, Total Bilirubin 0.4, AST 22, ALT 15, Alkaline Phosphatase 42, Total Protein 5.1 L, Albumin 2.9 L D, Globulin 2.2, Albumin/Globulin Ratio 1.3 I & O for Labs for Last 24 Hours: Intake & Output 12/27/24 12/28/24 12/29/24 12/30/24 11:59 11:59 11:59 11:59 Intake Total 1437 / 1437 Output Total 0 / 0 Balance 1437 / 1437 Weight 196 lb 9.6 oz Constitutional: no acute distress Neck: Present full ROM Respiratory: Absent respiratory distress Cardiac: Absent Tachycardia GI: Present soft; Absent tenderness Results Labs 12/30/24 05:35 12/30/24 05:35 Labs: Laboratory Results - last 24 hr 12/29/24 13:22: WBC 11.2 H, RBC 5.05, Hgb 15.8, Hct 46.2, MCV 91.5, MCH 31.3 H, MCHC 34.2, RDW 12.5, Plt Count 259, MPV 9.5, Neut % (Auto) 62.8, Lymph % (Auto) 22.6, [place] % (Auto) 13.7 H, Eos % (Auto) 0.2, Baso % (Auto) 0.4, Neut # (Auto) 7.1, Lymph # (Auto) 2.5, [place] # (Auto) 1.5 H, Eos # (Auto) 0.0, Baso # (Auto) 0.0, PT 10.9, INR 0.99, Sodium 130 L, Potassium 5.1, Chloride 101, Carbon Dioxide 26, Anion Gap 8.1, BUN 39 H, Creatinine 0.90, Estimated Creat Clear 120, Estimated GFR 88, Est GFR ( Amer) 106, Glucose 166 H, Calcium 9.0, Total Bilirubin 0.6, AST 28, ALT 18, Alkaline Phosphatase 57, Total Protein 6.5, Albumin 3.7, Globulin 2.8, Albumin/Globulin Ratio 1.3, Lipase 78 12/29/24 13:35: Blood Type O Positive, Antibody Screen Negative 12/29/24 13:42: VBG pH 7.35, VBG pCO2 43.1, VBG pO2 34.3, VBG HCO3 23.4, VBG Total CO2 24.7, VBG O2 Saturation 63.4, VBG Base Excess -2.2, VBG Lactic Acid 1.6 12/29/24 16:20: Hgb 14.1 D, Hct 39.8 L, Lactate 1.3 12/29/24 18:23: Stool Occult Blood Positive A, Stl Aeromonas (PCR) Not detected, Stl C. cayetanensis PCR Not detected, Stool Rotavirus (PCR) Not detected, Stl Adenov F 40/41 PCR Not detected, Stool Astrovirus (PCR) Not detected, Stool Campylobacter PCR Not detected, Stl C.difficile Tox PCR Not detected, Stool Cryptosporidium PCR Not detected, Stl E.coli Shiga Tox PCR Not detected, Stool E coli O157 PCR Not detected, Stl Enterotoxigenic E PCR Not detected, Stool EPEC (PCR) Not detected, Stool EAEC (PCR) Not detected, Stl E. histolytica PCR Not detected, Stool Giardia Lamblia PCR Not detected, Stool Salmonella PCR Not detected, Stool Sapovirus (PCR) Not detected, Stl P. shigelloides PCR Not detected, Stl Shigella/EIEC PCR Not detected, St Y.enterocolitica PCR Not detected, Stool Vibrio (PCR) Not detected, Stl Vibrio cholerae PCR Not detected, Stl Norovirus GI/GII PCR Not detected 12/29/24 20:04: Hgb 11.8 L D, Hct 34.6 L 12/30/24 05:35: WBC 10.4, RBC 3.14 L D, Hgb 9.9 L D, Hct 28.6 L, MCV 91.1, MCH 31.5 H, MCHC 34.6, RDW 12.7, Plt Count 199, MPV 9.8, Neut % (Auto) 61.4, Lymph % (Auto) 25.7, [place] % (Auto) 12.2 H, Eos % (Auto) 0.1, Baso % (Auto) 0.2, Neut # (Auto) 6.4, Lymph # (Auto) 2.7, [place] # (Auto) 1.3 H, Eos # (Auto) 0.0, Baso # (Auto) 0.0, Sodium 134 L, Potassium 4.4, Chloride 105, Carbon Dioxide 23, Anion Gap 10.4, BUN 33 H, Creatinine 1.00, Estimated Creat Clear 107, Estimated GFR 78, Est GFR ( Amer) 94, Glucose 100 D, Calcium 7.7 L, Magnesium 1.6, Total Bilirubin 0.4, AST 22, ALT 15, Alkaline Phosphatase 42, Total Protein 5.1 L, Albumin 2.9 L D, Globulin 2.2, Albumin/Globulin Ratio 1.[address] scan - abdomen: report reviewed and image reviewed CT scan - pelvis: report reviewed and image reviewed US - abdomen: report reviewed and image reviewed Assessment and Plan *Assessment and plan (1) Acute GI bleeding: Status: Acute Category: Medical Code(s): K92.2 - Gastrointestinal hemorrhage, unspecified Plan: Continue proton pump in addition Continue serial hemoglobin/hematocrit Esophagogastroduodenoscopy this morning I have discussed the risks and benefits including, but not limited to: Bleeding Infection Damage to surrounding tissue Inherent risks of sedation The patient agrees to proceed. (2) Duodenitis: Status: Acute Category: Medical Code(s): K29.80 - Duodenitis without bleeding Plan: Continue proton pump enervation (3) Acalculous cholecystitis: Problem Comment: Ultrasound reveals no evidence of acute cholecystitis Status: Acute Category: Medical Code(s): K81.9 - Cholecystitis, unspecified Plan: Radiographic findings with regard to gallbladder on CT scan are more likely secondary to peptic ulcer disease/gastritis/duodenitis. Specifically, follow-up ultrasound revealed no evidence of cholecystitis. In addition, the patient does not have right upper quadrant pain or other history/findings consistent with biliary disease. Seemingly, the risks of cholecystectomy given the totality of findings greatly outweigh any potential benefit.
--- NOTE | 2024-12-30 07:43 | HMH.SCOPE ---
Procedure: Date: 12/30/24 Patient Date of :: 1970 Procedure Performed:: Esophagogastroduodenoscopy with biopsy and epinephrine injection Indications:: Gastrointestinal hemorrhage Performing Provider:: Isaías Tomlin MD Referring Provider:: . Sedation:: Monitored anesthesia care Procedure:: After informed consent was obtained the patient was taken to the endoscopy suite. Sedation ensued after the patient was transferred to the left lateral decubitus position. Pulse, blood pressure, and oxygen saturation were monitored throughout the procedure. The endoscope was advanced beyond the duodenal bulb. Retroflexion within the gastric lumen was accomplished. The gastroscope was carefully removed and the patient was transferred to recovery in stable condition. Please see findings and specimens below for detail. Findings:: Sliding hiatal hernia Pyloric channel cratered ulcer with projection to proximal duodenum and distal gastric margin No evidence of active bleeding No retained blood/clot within gastric lumen or visualized duodenum Epinephrine injection circumferentially around the ulcer margin completed (10 mL) Specimens:: Biopsy of pyloric channel ulcer margin Recommendations:: Continue proton pump inhibition Continue serial hemoglobin/hematocrit Complications:: No immediate Estimated blood obtained (mL): 1 Colonoscopy Component Colonoscopy Component Was a colonoscopy performed during today's procedure?: No
--- NOTE | 2024-12-30 07:48 | EXP.ANES.CKL ---
[facility] Disclaimer: The information contained in this section may have been updated after the patient was seen, as this information can be updated by other users. Medical History (Updated 12/30/24 @ 07:10 by Isaías Tomlin MD) Chronic back pain Social History Smoking Status: Current every day smoker tobacco type: cigarettes packs per day: 1 alcohol intake: never substance use type: former substance user current occupational status: employed Travel in the last 8 weeks: None Have you lived/traveled outside US in past 30 days?: No Contact w/someone who lives/traveled outside US past 30 days?: No Exposure to someone with infectious disease in past 14 days?: No Do you have a fever (greater than 100.4 F or 38 C)?: No Have you tested positive for COVID-19: No Exposed to someone with COVID-19 in past 14 days?: No Do you have a sore throat?: No Do you have a cough?: No Do you have any weakness?: Yes Do you have any diarrhea?: Yes Are you experiencing any unusual bleeding?: No Do you have any muscle aches/pain?: No Do you have any abdominal pain?: No Are you experiencing loss of taste or smell?: No [facility] Anesthesia Checklist Patient Identification Patient Identification: Arm Band and Verbal (Name & ) Structural Data Admitted From: Inpatient (-[id number]) Planned Operative Procedure/s: EGD Consent for Planned Operative Procedure(s) Verified: Yes Verified Documents: Surgical Consent and History and Physical NPO Status Verified Time NPO: 00:00 Chart Verification Results Verified: CBC, BMP, ECG and Chest Xray Additional verifications Patient : No Anesthesia Reactions: No Cardiovascular Assessment Heart Sounds: S1 & S2 Pulse Rhythm: Irregular Peripheral Edema: No Airway Assessment Mallampati Score:: Class II C-Spine Mobility Assessed: Yes (FROM demonstrated) TMJ Mobility Assessed: Yes Dentition: Edentulous Neurological Assessment Level of Consciousness: Awake, Alert, Appropriate and Follows Commands Hx Seizures: No Numbness or tingling in extremities: No Anesthesia Plan Anesthesia Risk discussed: Yes Anesthesia Plan: Verified ASA Class: III Anesthesia Type: MAC
--- NOTE | 2024-12-30 09:30 | HMH.PHAINT1 ---
Pharmacy Intervention Comments: MEDICATION RECONCILIATION COMPLETE USING EXTERNAL PHARMACY FILL HISTORY AND ERROL REPORT. PER MATILDE LARRY RN, PATIENT STATES HE TAKES 2 FILMS OF SUBOXONE DAILY (ERROL REPORT APPEARS THE DOSE SHOULD BE 2.5 FILMS DAILY, CHARTED HOW PATIENT STATES HE TAKES) AND GABAPENTIN 800 MG TWO TO THREE TIMES DAILY (ERROL REPORT/FILL HISTORY SHOWS QID DOSING, CHARTED HOW PATIENT STATES HE TAKES).
[2024-12-30] MEDS: GABAPENTIN 800MG TABLET 800 MG PO ×3 (09:53→20:46)
[2024-12-30] MEDS: SODIUM CHLORIDE 0.9% 10ML VIAL 10 ML IV ×2 (09:53→20:46)
[2024-12-30] MEDS: PANTOPRAZOLE 40MG VIAL 40 MG IV ×2 (09:53→20:46)
[2024-12-30] MEDS: BUPRENORPHINE/NALOXONE 8MG/2MG ODT 2 EACH SL (09:53)
[2024-12-30] MEDS: SUCRALFATE 1GM/10ML SUSP UDC 1 GM PO ×3 (11:31→20:46)
[2024-12-30] MEDS: MAGNESIUM SULFATE IN WATER 2 GM/50 ML PIGGYBACK IV ×2 (14:05→15:00)
[2024-12-30 17:22] LABS: Hematocrit 26.2 % (42.0-52.0)
--- NOTE | 2024-12-30 18:38 | PC.NURSE ---
PT IS RESTING IN BED. ALERT AND ORIENTED X4. PT STATES HE IS FEELING BETTER TODAY. TOLERATING FULL LIQUIDS. PT HAS HAD 1 LOOSE DARK BLOODY STOOL THIS SHIFT. LUNG SOUNDS CLEAR. ABDOMEN SOFT/NON TENDER WITH ACTIVE BOWEL SOUNDS. VSS. WILL CONTINUE TO MONITOR.
[2024-12-30] MEDS: MELATONIN 5MG TABLET 5 MG PO (20:46)
--- NOTE | 2024-12-30 21:38 | PC.NURSE ---
PLaced patient on 2L NC at this time, O2 sat maintaining 87%.
--- NOTE | 2024-12-30 22:13 | EXP.PN ---
Subjective *Date: 12/30/24 *Time: 22:13 Interval history: Doing well after EGD today, vital signs stable. Pyloric ulcer was found s/p localized epinephrine. N.p.o. overnight in case needs repeat EGD/colonoscopy in the morning if further evidence of bleeding. Exam Data for Last 24 hours Vital signs and Labs for Last 24 Hours: Temp Pulse Resp BP Pulse Ox O2 Del Method O2 Flow Rate 98.9 F 104 H 18 118/84 98 Room Air 2 12/30/24 19:47 12/30/24 20:00 12/30/24 19:47 12/30/24 19:47 12/30/24 19:47 12/30/24 21:00 12/30/24 06:41 Laboratory Results - last 24 hr 12/30/24 05:35: WBC 10.4, RBC 3.14 L D, Hgb 9.9 L D, Hct 28.6 L, MCV 91.1, MCH 31.5 H, MCHC 34.6, RDW 12.7, Plt Count 199, MPV 9.8, Neut % (Auto) 61.4, Lymph % (Auto) 25.7, [place] % (Auto) 12.2 H, Eos % (Auto) 0.1, Baso % (Auto) 0.2, Neut # (Auto) 6.4, Lymph # (Auto) 2.7, [place] # (Auto) 1.3 H, Eos # (Auto) 0.0, Baso # (Auto) 0.0, Sodium 134 L, Potassium 4.4, Chloride 105, Carbon Dioxide 23, Anion Gap 10.4, BUN 33 H, Creatinine 1.00, Estimated Creat Clear 107, Estimated GFR 78, Est GFR ( Amer) 94, Glucose 100 D, Calcium 7.7 L, Magnesium 1.6, Total Bilirubin 0.4, AST 22, ALT 15, Alkaline Phosphatase 42, Total Protein 5.1 L, Albumin 2.9 L D, Globulin 2.2, Albumin/Globulin Ratio 1.3 12/30/24 17:00: Hgb 9.0 L, Hct 26.2 L I & O for Last 24 hours: Intake & Output 12/27/24 12/28/24 12/29/24 12/30/24 23:59 23:59 23:59 23:59 Intake Total 2837 / 2837 Output Total 0 / 0 0 / 0 Balance 0 / 0 283 / 283 Weight 85.445 kg 89.176 kg Microbiology Reports for the Last 24 Hours: Microbiology 12/29/24 16:25 Blood Blood Culture - Preliminary NO GROWTH AFTER 24 HOURS 12/29/24 16:25 Blood Blood Culture - Preliminary NO GROWTH AFTER 24 HOURS Constitutional Constitutional: no acute distress *Routine HEENT Exam Head: Present normocephalic Eye: Present EOMI and PERRL ENT: Present mucous membranes moist *Routine Neck Exam Neck: Present supple; Absent lymphadenopathy *Routine Respiratory Exam Respiratory: Present CTA bilaterally *Routine Cardiovascular Exam Cardiovascular: Present RRR *Routine Abdominal Exam Abdominal: Present soft and normoactive bowel sounds; Absent tenderness *Routine Extremities Exam Extremities: Absent cyanosis, clubbing or edema *Routine Skin Exam Skin: Present warm; Absent rash *Routine Neurological Exam Neurological: Present alert and oriented X3 Assessment and Plan *Assessment and plan (1) Acalculous cholecystitis: Problem Comment: Ultrasound reveals no evidence of acute cholecystitis Status: Acute Category: Medical Code(s): K81.9 - Cholecystitis, unspecified (2) Duodenitis: Status: Acute Category: Medical Code(s): K29.80 - Duodenitis without bleeding (3) Acute GI bleeding: Status: Acute Category: Medical Code(s): K92.2 - Gastrointestinal hemorrhage, unspecified Plan Carlo Lamar is a 54-year-old male with a medical history significant for COPD on room air, low back pain and former opioid use because of it on Suboxone who presents with 3-day onset of nausea/vomiting, diarrhea. Diarrhea became bloody this morning which prompted patient to come to the ED. Denies abdominal pain, hematemesis, use of NSAIDs, alcohol use. Patient was hypotensive 70/36 on arrival which self resolved. Hemoglobin 14.1, BUN 39 out of proportion to creatinine 0.90, stool occult positive. CT abdomen/pelvis showed mucosal thickening of the first and second portion of the duodenum. Type and screen. ED reached out to GI and general surgery, and general surgery will scope patient in the morning. Case discussed with ED provider and decision was made to admit patient for suspected upper GI bleed. #Suspected upper GI bleed #Bright red blood per rectum ? Several day onset of nausea/vomiting/diarrhea became bloody this morning. Another episode on arrival. Blood red blood. ? Initial hemoglobin 14.1, however BUN 39 out of proportion to creatinine 0.90. ? CT abdomen/pelvis showed mucosal thickening of the first and second portion of the duodenum. ? Hemoglobin dropped to 9 overnight. ? General Surgery consulted, s/p EGD which showed pyloric ulcer without active bleed s/p local epinephrine. Spoke with Dr. Tomlin, will follow hemoglobin and perform repeat EGD tomorrow if patient continues to have signs of bleeding. Vital signs stable at this time. ? IV Protonix 40 mg twice daily. ? Typed and screened. #Acalculous cholecystitis ? Suggested by CT abdomen/pelvis. Did have nausea/vomiting, but no tenderness to palpation in the RUQ. ? General Surgery consulted, will further evaluate outpatient. No signs of acute cholecystitis. #COPD exacerbation ? Moderate wheezing in all lung duran. Increased nonproductive cough. ? Levalbuterol and ipratropium every 6 hours, Pulmicort twice daily ? Avoiding steroids in the setting of GI bleed. ? Will hold off on antibiotics given nonproductive cough. #Low back pain ? Resume home Suboxone, gabapentin. Full code DVT prophylaxis: SCDs.
[2024-12-31] VITALS (12 sets, daily range): BP systolic 103–152; BP diastolic 55–87; PULSE 60–95; RESP 14–18; TEMP 36.8–36.9; O2SAT 91–95; BMI 31.1
--- NOTE | 2024-12-31 03:06 | PC.NURSE ---
Spoke with Aurelio Olivia to update of trending BP with MAPS in 70s, patient has no complaints, other vital signs stable, no new orders, states to watch for tachycardia.
[2024-12-31] MEDS: PIPERACILLIN/TAZO 4.5 GM in 0.9 % SODIUM CHLORIDE 100 ML IV (04:02)
[2024-12-31] MEDS: ACETAMINOPHEN 325MG TAB 650 MG PO (04:03)
[2024-12-31] MEDS: SUCRALFATE 1GM/10ML SUSP UDC 1 GM PO ×4 (06:21→22:02)
--- NOTE | 2024-12-31 06:28 | PC.NURSE ---
Alert and oriented. No BM throughout the night, abdomen soft and slightly tender. Complained of back pain one time, treated per jan. Placed on 2L NC while sleeping, expiratory wheezing noted. No other complaints. Call light in reach.
[2024-12-31 06:51] LABS: Basophils % 0.3 % (0.1-2.0); Eosinophils # 0.1 K/mm3 (0.0-0.4); Eosinophils % 1.1 % (0.1-12.0); Hematocrit 24.3 % (42.0-52.0); Hemoglobin 8.3 g/dL (14.1-18.0); Lymphocytes # 1.8 K/mm3 (0.7-4.5); Lymphocytes % 27.6 % (10-50); Mean Corpuscular HGB Conc 34.2 g/dL (31.8-35.4); Mean Corpuscular Hemoglobin 31.6 pg (27.0-31.2); Mean Corpuscular Volume 92.4 fl (80-94); Mean Platelet Volume 9.4 fl (7.4-10.4); Monocytes # 0.6 K/mm3 (0.1-1.0); Monocytes % 8.9 % (1.7-9.3); Neutrophils % 61.5 % (37.0-80.0); Platelet Count 168 K/mm3 (142-424); Red Blood Count 2.63 M/mm3 (4.60-6.20); Red Cell Distribution Width 12.9 % (11.5-17.5); White Blood Count 6.5 K/mm3 (4.8-10.8)
[2024-12-31] MEDS: IPRATROPIUM BROMIDE 0.5 MG/2.5ML SOLUTION IH ×2 (07:02→11:24)
[2024-12-31] MEDS: LEVALBUTEROL 1.25MG/3ML NEB 1.25 MG IH ×2 (07:02→11:24)
[2024-12-31] MEDS: BUDESONIDE 0.5MG/2ML NEB 0.5 MG IH (07:02)
[2024-12-31 07:16] LABS: Alanine Aminotransferase 13 U/L (12-78); Albumin Level 2.7 g/dl (3.5-5.0); Albumin/Globulin Ratio 1.1 (1.1-1.8); Alkaline Phosphatase 42 U/L (38-126); Anion Gap 6.1 mEq/L (5-15); Aspartate Amino Transferase 25 U/L (17-59); Bilirubin,Total 0.3 mg/dl (0.2-1.3); Blood Urea Nitrogen 13 mg/dl (9-20); Calcium 7.5 mg/dl (8.4-10.2); Carbon Dioxide 29 mmol/L (22.0-30.0); Chloride 104 mmol/L (98-107); Creatinine Clearance Estimated 119 mL/min (50-200); Estimated Glomerular Filt Rate 88 ml/min (>60); GFR (African American) 106 ML/MIN (>60); Globulin 2.4 g/dL (1.3-3.2); Glucose 89 mg/dl (74-100); Magnesium 2.4 mg/dl (1.6-2.3); Potassium 4.1 mmoL/L (3.5-5.1); Sodium 135 mmol/L (136-145); Total Protein,Serum 5.1 g/dl (6.3-8.2)
[2024-12-31] MEDS: BUPRENORPHINE/NALOXONE 8MG/2MG ODT 2 EACH SL (08:05)
[2024-12-31] MEDS: SODIUM CHLORIDE 0.9% 10ML VIAL 10 ML IV (08:05)
[2024-12-31] MEDS: PANTOPRAZOLE 40MG VIAL 40 MG IV ×2 (08:05→22:02)
[2024-12-31] MEDS: GABAPENTIN 800MG TABLET 800 MG PO ×3 (08:05→22:02)
--- NOTE | 2024-12-31 10:17 | EXP.SURG.PN ---
Subjective Patient reports: no new complaints and feels better Narrative: No hematemesis. He states that his last bowel movement was becoming more normal in color Exam Data for Last 24 hours Vital signs and Labs for Last 24 Hours: Temp Pulse Resp BP Pulse Ox O2 Del Method O2 Flow Rate 98.2 F 95 H 18 143/75 H 91 L Room Air 2 12/31/24 08:00 12/31/24 08:00 12/31/24 08:00 12/31/24 08:00 12/31/24 08:00 12/31/24 09:00 12/31/24 07:03 Laboratory Results - last 24 hr 12/30/24 17:00: Hgb 9.0 L, Hct 26.2 L 12/31/24 06:12: WBC 6.5 D, RBC 2.63 L, Hgb 8.3 L, Hct 24.3 L, MCV 92.4, MCH 31.6 H, MCHC 34.2, RDW 12.9, Plt Count 168, MPV 9.4, Neut % (Auto) 61.5, Lymph % (Auto) 27.6, [place] % (Auto) 8.9, Eos % (Auto) 1.1, Baso % (Auto) 0.3, Neut # (Auto) 4.0, Lymph # (Auto) 1.8, [place] # (Auto) 0.6, Eos # (Auto) 0.1, Baso # (Auto) 0.0, Sodium 135 L, Potassium 4.1, Chloride 104, Carbon Dioxide 29, Anion Gap 6.1, BUN 13 D, Creatinine 0.90, Estimated Creat Clear 119, Estimated GFR 88, Est GFR ( Amer) 106, Glucose 89, Calcium 7.5 L, Magnesium 2.4 H D, Total Bilirubin 0.3, AST 25, ALT 13, Alkaline Phosphatase 42, Total Protein 5.1 L, Albumin 2.7 L, Globulin 2.4, Albumin/Globulin Ratio 1.1 I & O for Last 24 hours: Intake & Output 12/28/24 12/29/24 12/30/24 12/31/24 11:59 11:59 11:59 11:59 Intake Total 1437 / 1437 1869 Output Total 0 / 0 0 / 0 Balance 1437 / 1437 1869 Weight 196 lb 9.6 oz 198 lb 1.6 oz Microbiology Reports for the Last 24 Hours: Microbiology 12/29/24 16:25 Blood Blood Culture - Preliminary NO GROWTH AFTER 24 HOURS 12/29/24 16:25 Blood Blood Culture - Preliminary NO GROWTH AFTER 24 HOURS Constitutional Constitutional: no acute distress *Routine Cardiovascular Exam Comments: Heart rate 95 *Routine Abdominal Exam Abdominal: Present soft Progress Note: A&P Assessment and plan (1) Acute GI bleeding: Status: Acute Assessment and plan: Hemoglobin 8.3 this morning. Drop most likely secondary to equilibration. No definitive evidence of ongoing blood loss. Repeat hemoglobin/hematocrit at 14:00 (2) Pyloric channel ulcer: Status: Acute Assessment and plan: Continue current medical management (3) Acalculous cholecystitis: Problem details: Ultrasound reveals no evidence of acute cholecystitis Status: Acute Assessment and plan: The patient has no postprandial symptomatology. The patient has no right upper quadrant pain. Radiographic findings per CT most likely secondary to peptic ulcer disease.
[2024-12-31 14:45] LABS: Hematocrit 22.3 % (42.0-52.0); Hemoglobin 7.6 g/dL (14.1-18.0)
--- NOTE | 2024-12-31 17:46 | PC.NURSE ---
Pt has done well today. He reports that his bowel movements are becoming more brown in color. denies abdominal pain, nausea, and vomiting. vss. Remains on room air during the day. He wants to go home. H&H dropped today. MD aware. PT frustrated that he has to stay another night in the hospital. Informed that he will most likely have another scope done tomorrow.
--- NOTE | 2024-12-31 20:46 | EXP.PN ---
Subjective *Date: 12/31/24 *Time: 20:46 Interval history: Patient continues to be very pleasant, conversational, in good spirits. Understands that his hemoglobin dropped again to 7.6 today, is agreeable to rescoping in the morning with general surgery. Did have brown/dark stool but no bright red bloody stools, abdominal pain. Exam Data for Last 24 hours Vital signs and Labs for Last 24 Hours: Temp Pulse Resp BP Pulse Ox O2 Del Method O2 Flow Rate 98.5 F 95 H 18 123/87 93 L Room Air 2 12/31/24 20:00 12/31/24 20:00 12/31/24 20:00 12/31/24 20:00 12/31/24 20:00 12/31/24 20:00 12/31/24 07:03 Laboratory Results - last 24 hr 12/31/24 06:12: WBC 6.5 D, RBC 2.63 L, Hgb 8.3 L, Hct 24.3 L, MCV 92.4, MCH 31.6 H, MCHC 34.2, RDW 12.9, Plt Count 168, MPV 9.4, Neut % (Auto) 61.5, Lymph % (Auto) 27.6, [place] % (Auto) 8.9, Eos % (Auto) 1.1, Baso % (Auto) 0.3, Neut # (Auto) 4.0, Lymph # (Auto) 1.8, [place] # (Auto) 0.6, Eos # (Auto) 0.1, Baso # (Auto) 0.0, Sodium 135 L, Potassium 4.1, Chloride 104, Carbon Dioxide 29, Anion Gap 6.1, BUN 13 D, Creatinine 0.90, Estimated Creat Clear 119, Estimated GFR 88, Est GFR ( Amer) 106, Glucose 89, Calcium 7.5 L, Magnesium 2.4 H D, Total Bilirubin 0.3, AST 25, ALT 13, Alkaline Phosphatase 42, Total Protein 5.1 L, Albumin 2.7 L, Globulin 2.4, Albumin/Globulin Ratio 1.1 12/31/24 14:10: Hgb 7.6 L, Hct 22.3 L I & O for Last 24 hours: Intake & Output 01/30/25 01/31/25 02/01/25 02/02/25 23:59 23:59 23:59 23:59 Intake Total 2837 / 3037 1320 / 1320 Output Total 0 / 0 0 / 0 0 / 0 Balance 0 / 0 2837 / 3037 1320 / 1320 Weight 85.445 kg 89.176 kg 89.857 kg Microbiology Reports for the Last 24 Hours: Microbiology 12/29/24 16:25 Blood Blood Culture - Preliminary NO GROWTH AFTER 48 HOURS 12/29/24 16:25 Blood Blood Culture - Preliminary NO GROWTH AFTER 48 HOURS Constitutional Constitutional: no acute distress *Routine HEENT Exam Head: Present normocephalic Eye: Present EOMI and PERRL ENT: Present mucous membranes moist *Routine Neck Exam Neck: Present supple; Absent lymphadenopathy *Routine Respiratory Exam Respiratory: Present CTA bilaterally *Routine Cardiovascular Exam Cardiovascular: Present RRR *Routine Abdominal Exam Abdominal: Present soft and normoactive bowel sounds; Absent tenderness *Routine Extremities Exam Extremities: Absent cyanosis, clubbing or edema *Routine Skin Exam Skin: Present warm; Absent rash *Routine Neurological Exam Neurological: Present alert and oriented X3 Assessment and Plan *Assessment and plan (1) Acalculous cholecystitis: Problem Comment: Ultrasound reveals no evidence of acute cholecystitis Status: Acute Category: Medical Code(s): K81.9 - Cholecystitis, unspecified (2) Duodenitis: Status: Deleted Category: Medical Code(s): K29.80 - Duodenitis without bleeding (3) Acute GI bleeding: Status: Acute Category: Medical Code(s): K92.2 - Gastrointestinal hemorrhage, unspecified Plan Carlo Lamar is a 54-year-old male with a medical history significant for COPD on room air, low back pain and former opioid use because of it on Suboxone who presents with 3-day onset of nausea/vomiting, diarrhea. Diarrhea became bloody this morning which prompted patient to come to the ED. Denies abdominal pain, hematemesis, use of NSAIDs, alcohol use. Patient was hypotensive 70/36 on arrival which self resolved. Hemoglobin 14.1, BUN 39 out of proportion to creatinine 0.90, stool occult positive. CT abdomen/pelvis showed mucosal thickening of the first and second portion of the duodenum. Type and screen. ED reached out to GI and general surgery, and general surgery will scope patient in the morning. Case discussed with ED provider and decision was made to admit patient for suspected upper GI bleed. #Suspected upper GI bleed #Bright red blood per rectum ? Several day onset of nausea/vomiting/diarrhea became bloody this morning. Another episode on arrival. Blood red blood. ? Initial hemoglobin 14.1, however BUN 39 out of proportion to creatinine 0.90. ? CT abdomen/pelvis showed mucosal thickening of the first and second portion of the duodenum. ? General Surgery consulted, s/p EGD which showed pyloric ulcer without active bleed s/p local epinephrine. ? Hemoglobin again dropped to 7.6 today unfortunately. Vital stable, though slightly tachycardic with HR 95. ? N.p.o. at midnight, plan for repeat scope in the morning with general surgery. ? IV Protonix 40 mg twice daily. ? Typed and screened. #Acalculous cholecystitis ? Suggested by CT abdomen/pelvis. Did have nausea/vomiting, but no tenderness to palpation in the RUQ. ? General Surgery consulted, will further evaluate outpatient. No signs of acute cholecystitis. #COPD exacerbation ? Moderate wheezing in all lung duran. Increased nonproductive cough. ? Resolved with breathing treatments. #Low back pain ? Resume home Suboxone, gabapentin. Full code DVT prophylaxis: SCDs.
[2024-12-31 21:13] LABS: Hematocrit 24.2 % (42.0-52.0); Hemoglobin 8.3 g/dL (14.1-18.0)
[2024-12-31] MEDS: MELATONIN 5MG TABLET 5 MG PO (22:02)
[2025-01-01] VITALS: BP 120/78; PULSE 81; PULSE 90; RESP 17; TEMP 36.5; O2SAT 94
[2025-01-01 04:00] VITALS: BP 116/69; PULSE 100; PULSE 70; RESP 18; TEMP 36.8; O2SAT 90; BMI 30.4
--- NOTE | 2025-01-01 05:40 | PC.NURSE ---
Alert and oriented. No complaints from patient. No BM through night. Remained room air. Independent in the room. NPO at midnight. Call light in reach.
[2025-01-01] MEDS: SUCRALFATE 1GM/10ML SUSP UDC 1 GM PO (05:52)
[2025-01-01 06:00] LABS: Basophils % 0.4 % (0.1-2.0); Eosinophils # 0.1 K/mm3 (0.0-0.4); Eosinophils % 1.8 % (0.1-12.0); Hematocrit 26.3 % (42.0-52.0); Hemoglobin 8.9 g/dL (14.1-18.0); Lymphocytes # 2.8 K/mm3 (0.7-4.5); Lymphocytes % 35.2 % (10-50); Mean Corpuscular HGB Conc 33.8 g/dL (31.8-35.4); Mean Corpuscular Hemoglobin 31.1 pg (27.0-31.2); Mean Platelet Volume 9.4 fl (7.4-10.4); Monocytes # 0.7 K/mm3 (0.1-1.0); Monocytes % 8.6 % (1.7-9.3); Neutrophils # 4.2 K/mm3 (1.8-7.8); Neutrophils % 53.1 % (37.0-80.0); Platelet Count 219 K/mm3 (142-424); Red Blood Count 2.86 M/mm3 (4.60-6.20); Red Cell Distribution Width 12.6 % (11.5-17.5); White Blood Count 7.9 K/mm3 (4.8-10.8)
[2025-01-01 06:10] LABS: Alanine Aminotransferase 31 U/L (12-78); Albumin Level 3.3 g/dl (3.5-5.0); Albumin/Globulin Ratio 1.4 (1.1-1.8); Alkaline Phosphatase 49 U/L (38-126); Aspartate Amino Transferase 45 U/L (17-59); Bilirubin,Total 0.3 mg/dl (0.2-1.3); Blood Urea Nitrogen 7 mg/dl (9-20); Calcium 8.3 mg/dl (8.4-10.2); Carbon Dioxide 31 mmol/L (22.0-30.0); Chloride 103 mmol/L (98-107); Creatinine Clearance Estimated 132 mL/min (50-200); Estimated Glomerular Filt Rate 101 ml/min (>60); GFR (African American) 122 ML/MIN (>60); Globulin 2.4 g/dL (1.3-3.2); Glucose 88 mg/dl (74-100); Magnesium 2.3 mg/dl (1.6-2.3); Sodium 138 mmol/L (136-145); Total Protein,Serum 5.7 g/dl (6.3-8.2)
--- NOTE | 2025-01-01 06:11 | P.PN_ITS ---
Subjective Patient reports: no new complaints and feels better Narrative: He states that his bowel movements keep getting more normal in terms of color. Exam Data for Last 24 hours Vital signs and Labs for Last 24 Hours: Temp Pulse Resp BP Pulse Ox O2 Del Method O2 Flow Rate 98.2 F 70 18 116/69 90 L Room Air 2 01/01/25 04:00 01/01/25 04:00 01/01/25 04:00 01/01/25 04:00 01/01/25 04:00 01/01/25 05:00 12/31/24 07:03 Laboratory Results - last 24 hr 12/31/24 06:12: WBC 6.5 D, RBC 2.63 L, Hgb 8.3 L, Hct 24.3 L, MCV 92.4, MCH 31.6 H, MCHC 34.2, RDW 12.9, Plt Count 168, MPV 9.4, Neut % (Auto) 61.5, Lymph % (Auto) 27.6, [place] % (Auto) 8.9, Eos % (Auto) 1.1, Baso % (Auto) 0.3, Neut # (Auto) 4.0, Lymph # (Auto) 1.8, [place] # (Auto) 0.6, Eos # (Auto) 0.1, Baso # (Auto) 0.0, Sodium 135 L, Potassium 4.1, Chloride 104, Carbon Dioxide 29, Anion Gap 6.1, BUN 13 D, Creatinine 0.90, Estimated Creat Clear 119, Estimated GFR 88, Est GFR ( Amer) 106, Glucose 89, Calcium 7.5 L, Magnesium 2.4 H D, Total Bilirubin 0.3, AST 25, ALT 13, Alkaline Phosphatase 42, Total Protein 5.1 L, Albumin 2.7 L, Globulin 2.4, Albumin/Globulin Ratio 1.1 12/31/24 14:10: Hgb 7.6 L, Hct 22.3 L 12/31/24 20:05: Hgb 8.3 L, Hct 24.2 L 01/01/25 05:52: WBC 7.9, RBC 2.86 L, Hgb 8.9 L, Hct 26.3 L, MCV 92.0, MCH 31.1, MCHC 33.8, RDW 12.6, Plt Count 219 D, MPV 9.4, Neut % (Auto) 53.1, Lymph % (Auto) 35.2, [place] % (Auto) 8.6, Eos % (Auto) 1.8, Baso % (Auto) 0.4, Neut # (Auto) 4.2, Lymph # (Auto) 2.8, [place] # (Auto) 0.7, Eos # (Auto) 0.1, Baso # (Auto) 0.0 I & O for Last 24 hours: Intake & Output 12/29/24 12/30/24 12/31/24 01/01/25 11:59 11:59 11:59 11:59 Intake Total 1437 / 1437 1870 / 1870 1150 / 1150 Output Total 0 / 0 0 / 0 0 / 0 Balance 1437 / 1437 1870 / 1870 1150 / 1150 Weight 196 lb 9.6 oz 198 lb 1.6 oz 194 lb 4.8 oz Microbiology Reports for the Last 24 Hours: Microbiology 12/29/24 16:25 Blood Blood Culture - Preliminary NO GROWTH AFTER 48 HOURS 12/29/24 16:25 Blood Blood Culture - Preliminary NO GROWTH AFTER 48 HOURS Constitutional Constitutional: no acute distress *Routine Cardiovascular Exam Cardiovascular: Absent tachycardia *Routine Abdominal Exam Abdominal: Present soft Progress Note: A&P Assessment and plan (1) Acute GI bleeding: Status: Acute Assessment and plan: Hemoglobin 8.9 this morning (now trending back up after jeet of 7.6). He continues to show no definitive evidence of ongoing blood loss. Okay from surgical standpoint for discharge home with close outpatient follow-up (2) Pyloric channel ulcer: Status: Acute Assessment and plan: Continue current medical management (3) Acalculous cholecystitis: Problem details: Ultrasound reveals no evidence of acute cholecystitis Status: Ruled-out Assessment and plan: The patient has no postprandial symptomatology. The patient has no right upper quadrant pain. Radiographic findings per CT most likely secondary to peptic ulcer disease.
[2025-01-01 07:19] VITALS: BP 150/75; PULSE 81; RESP 18; TEMP 36.8; O2SAT 96
[2025-01-01] MEDS: GABAPENTIN 800MG TABLET 800 MG PO (08:40)
[2025-01-01] MEDS: BUPRENORPHINE/NALOXONE 8MG/2MG ODT 2 EACH SL (08:40)
[2025-01-01] MEDS: SODIUM CHLORIDE 0.9% 10ML VIAL 10 ML IV (08:40)
[2025-01-01] MEDS: PANTOPRAZOLE 40MG VIAL 40 MG IV (08:40)
--- NOTE | 2025-01-01 10:02 | EXP.DC.SUM ---
General Admission date:: 12/29/24 HPI HPI HPI: This is a 54-year-old gentleman who presented to the emergency department with a 3-day history of nausea, vomiting, and diarrhea. Some vague abdominal discomfort but no specific pain (specifically no right upper quadrant pain). No fevers. No jaundice. Please see HPI forwarded from admission H&P below. Forwarded from admission H&P: Carlo Lamar is a 54-year-old male with a medical history significant for COPD on room air, low back pain and former opioid use because of it on Suboxone who presents with 3-day onset of nausea/vomiting, diarrhea. Diarrhea became bloody this morning which prompted patient to come to the ED. Denies abdominal pain, hematemesis, use of NSAIDs, alcohol use. Patient was hypotensive 70/36 on arrival which self resolved. BUN 39 out of proportion to creatinine 0.90, stool occult positive. CT abdomen/pelvis showed mucosal thickening of the first and second portion of the duodenum. Type and screen. ED reached out to GI and general surgery, and general surgery will scope patient in the morning. Case discussed with ED provider and decision was made to admit patient for suspected upper GI bleed. Hospital Course Hospital Course Hospital Course: Carlo Lamar is a 54-year-old male with a medical history significant for COPD on room air, low back pain and former opioid use because of it on Suboxone who presents with 3-day onset of nausea/vomiting, diarrhea. Diarrhea became bloody this morning which prompted patient to come to the ED. Denies abdominal pain, hematemesis, use of NSAIDs, alcohol use. Patient was hypotensive 70/36 on arrival which self resolved. Hemoglobin 14.1, BUN 39 out of proportion to creatinine 0.90, stool occult positive. CT abdomen/pelvis showed mucosal thickening of the first and second portion of the duodenum. Type and screen. ED reached out to GI and general surgery, and general surgery will scope patient in the morning. Case discussed with ED provider and decision was made to admit patient for suspected upper GI bleed. #Suspected upper GI bleed #Bright red blood per rectum ? Presented with several day onset of nausea/vomiting/diarrhea became bloody this morning. Another episode on arrival. Blood red blood. ? Initial hemoglobin 14.1, however BUN 39 out of proportion to creatinine 0.90. ? CT abdomen/pelvis showed mucosal thickening of the first and second portion of the duodenum. ? General Surgery consulted, s/p EGD which showed pyloric ulcer without active bleed s/p local epinephrine injection. ? Hemoglobin dropped to 7.6 today during hospital course, but improved to 8.9 the day after. Vital signs stable. No further episodes of bleeding. Discussed with general surgery, recommended further outpatient evaluation and management. Will benefit from screening colonoscopy. ? Discharged with Protonix 40 mg twice daily, Carafate. # Suspected acalculous cholecystitis ? Suggested by CT abdomen/pelvis. Did have nausea/vomiting, but no tenderness to palpation in the RUQ. ? General Surgery consulted, will further evaluate outpatient. No signs of acute cholecystitis or sepsis/infection. #COPD exacerbation ? Initially had moderate wheezing in all lung duran. Increased nonproductive cough. ? Resolved with breathing treatments. #Low back pain ? Resume home Suboxone, gabapentin. Total time spent on discharge: 32 minutes on chart review, counseling, documentation, and direct care with patient. Exam Data for Last 24 hours Vital signs and Labs for Last 24 Hours: Temp Pulse Resp BP Pulse Ox O2 Del Method O2 Flow Rate 98.3 F 81 18 150/75 H 96 Room Air 2 01/01/25 07:19 01/01/25 07:19 01/01/25 07:19 01/01/25 07:19 01/01/25 07:19 01/01/25 09:00 12/31/24 07:03 Laboratory Results - last 24 hr 12/31/24 14:10: Hgb 7.6 L, Hct 22.3 L 12/31/24 20:05: Hgb 8.3 L, Hct 24.2 L 01/01/25 05:52: WBC 7.9, RBC 2.86 L, Hgb 8.9 L, Hct 26.3 L, MCV 92.0, MCH 31.1, MCHC 33.8, RDW 12.6, Plt Count 219 D, MPV 9.4, Neut % (Auto) 53.1, Lymph % (Auto) 35.2, [place] % (Auto) 8.6, Eos % (Auto) 1.8, Baso % (Auto) 0.4, Neut # (Auto) 4.2, Lymph # (Auto) 2.8, [place] # (Auto) 0.7, Eos # (Auto) 0.1, Baso # (Auto) 0.0, Sodium 138, Potassium 4.0, Chloride 103, Carbon Dioxide 31 H, Anion Gap 8.0, BUN 7 L D, Creatinine 0.80, Estimated Creat Clear 132, Estimated GFR 101, Est GFR ( Amer) 122, Glucose 88, Calcium 8.3 L, Magnesium 2.3, Total Bilirubin 0.3, AST 45 D, ALT 31 D, Alkaline Phosphatase 49, Total Protein 5.7 L, Albumin 3.3 L D, Globulin 2.4, Albumin/Globulin Ratio 1.4 I & O for Last 24 hours: Intake & Output 12/29/24 12/30/24 12/31/24 01/01/25 23:59 23:59 23:59 23:59 Intake Total 2837 / 3037 1320 / 1620 720 / 720 Output Total 0 / 0 0 / 0 0 / 0 0 / 0 Balance 0 / 0 2837 / 3037 1320 / 1620 720 / 720 Weight 85.445 kg 89.176 kg 89.857 kg 88.133 kg Microbiology Reports for the Last 24 Hours: Microbiology 12/29/24 16:25 Blood Blood Culture - Preliminary NO GROWTH AFTER 48 HOURS 12/29/24 16:25 Blood Blood Culture - Preliminary NO GROWTH AFTER 48 HOURS Constitutional Constitutional: no acute distress *Routine HEENT Exam Head: Present normocephalic Eye: Present EOMI and PERRL ENT: Present mucous membranes moist *Routine Neck Exam Neck: Present supple; Absent lymphadenopathy *Routine Respiratory Exam Respiratory: Present CTA bilaterally *Routine Cardiovascular Exam Cardiovascular: Present RRR *Routine Abdominal Exam Abdominal: Present soft and normoactive bowel sounds; Absent tenderness *Routine Extremities Exam Extremities: Absent cyanosis, clubbing or edema *Routine Skin Exam Skin: Present warm; Absent rash *Routine Neurological Exam Neurological: Present alert and oriented X3 Results Data Completed and Pending Labs on day of discharge: Labs from last 24 hours 01/01/25 12/31/24 12/31/24 05:52 20:05 14:10 WBC 7.9 RBC 2.86 L Hgb 8.9 L 8.3 L 7.6 L Hct 26.3 L 24.2 L 22.3 L MCV 92.0 MCH 31.1 MCHC 33.8 RDW 12.6 Plt Count 219 D MPV 9.4 Neut % (Auto) 53.1 Lymph % (Auto) 35.2 Laurens % (Auto) 8.6 Eos % (Auto) 1.8 Baso % (Auto) 0.4 Neut # (Auto) 4.2 Lymph # (Auto) 2.8 [place] # (Auto) 0.7 Eos # (Auto) 0.1 Baso # (Auto) 0.0 Sodium 138 Potassium 4.0 Chloride 103 Carbon Dioxide 31 H Anion Gap 8.0 BUN 7 L D Creatinine 0.80 Estimated Creat Clear 132 Estimated GFR 101 Est GFR ( Amer) 122 Glucose 88 Calcium 8.3 L Magnesium 2.3 Total Bilirubin 0.3 AST 45 D ALT 31 D Alkaline Phosphatase 49 Total Protein 5.7 L Albumin 3.3 L D Globulin 2.4 Albumin/Globulin Ratio 1.4 Preliminary micro results at discharge 12/29/24 16:25 Blood Culture - Preliminary Blood NO GROWTH AFTER 48 HOURS 12/29/24 16:25 Blood Culture - Preliminary Blood NO GROWTH AFTER 48 HOURS DS: Diagnosis Discharge Diagnosis (1) Acute GI bleeding: Status: Acute Code(s): K92.2 - Gastrointestinal hemorrhage, unspecified (2) Pyloric channel ulcer: Status: Acute Code(s): K25.9 - Gastric ulcer, unspecified as acute or chronic, without hemorrhage or perforation (3) Acalculous cholecystitis: Status: Ruled-out Code(s): K81.9 - Cholecystitis, unspecified Problem details: Ultrasound reveals no evidence of acute cholecystitis Meds Home Medications and Allergies Home Medications ?Medication ?Instructions ?Recorded ?Confirmed ?Type budesonide-formoterol HFA 160 2 inh inhalation DAILY 12/29/24 01/03/25 History mcg-4.5 mcg/actuation aerosol inhaler (Symbicort) buprenorphine 8 mg-naloxone 2 mg 2 film sublingual DAILY 12/29/24 01/03/25 History sublingual film ergocalciferol (vitamin D2) 1,250 1,250 mcg PO WEEKLY 12/29/24 01/03/25 History mcg (50,000 unit) capsule gabapentin 800 mg tablet 800 mg PO TID 12/29/24 01/03/25 History rosuvastatin 10 mg tablet 10 mg PO DAILY 12/29/24 01/03/25 History testosterone 20.25 mg topical DAILY 12/29/24 01/03/25 History pantoprazole 40 mg tablet,delayed 40 mg PO BID 30 days #60 tabs 01/01/25 01/03/25 Rx release (Protonix) sucralfate 1 gram tablet (Carafate) 1 g PO .nightly #30 tabs 01/01/25 01/03/25 Rx New Prescriptions to Start Prescriptions: pantoprazole [Protonix] Hubert Lopez sucralfate [Carafate] Hubert Lopez Allergies Allergy/AdvReac Type Severity Reaction Status Date / Time No Known Allergies Allergy Verified 01/03/25 14:49 Discharge Plan Disposition Patient Disposition: Home, Self-Care Condition: Fair Discharge Order Discharge Orders: Discharge Order (Routine); Ordered 01/01/25 Ordered By: Hubert Lopez Follow up Plan Follow up with: Johanna Son MD [Physician] - 02/07/25 1:40 pm (Eval for sleep study, apneic episodes at night) Isaías Tomlin MD [Staff Physician] - 01/03/25 2:45 pm Prescriptions/Medication Reconciliation: New pantoprazole [Protonix] 40 mg tablet,delayed release (DR/EC) 40 mg PO BID 30 Days Qty: 60 0RF sucralfate [Carafate] 1 gram tablet 1 g PO .nightly Qty: 30 0RF Continued gabapentin 800 mg tablet 800 mg PO TID ergocalciferol (vitamin D2) 1,250 mcg (50,000 unit) capsule 1,250 mcg PO WEEKLY rosuvastatin 10 mg tablet 10 mg PO DAILY budesonide-formoterol [Symbicort] 160-4.5 mcg/actuation HFA aerosol inhaler 2 inh inhalation DAILY buprenorphine-naloxone 8-2 mg film 2 film sublingual DAILY testosterone 20.25 mg/1.25 gram (1.62 %) gel in metered-dose pump 20.25 mg topical DAILY Problem Reconciliation Problems Reviewed?: Yes Patient Discharge Instructions Patient Instructions: DI for Gastric Ulcer, DI for Gastrointestinal Bleeding Print Language: E[place] Providers Primary Care Provider: Jack Bautista Admit Provider: Hubert Lopez Attending Provider: Hubert Lopez
--- NOTE | 2025-01-03 11:38 | SW/DCPLANNER ---
Spoke with patient on the phone. Patient stated that he is doing well. Patient stated that he is aware of his upcoming appointments. Patient stated that he was able to get his new medicine from clinic pharmacy. Patient stated that he has no concerns or questins at this time. Patel Bennett
== END 2025-01-01 10:23 | disposition home or self-care (01) | DRG 378 ==
LOC: ER 16:13 → 2ND 17:26
PROVIDERS: Student in an Organized Health Care Education/Training Program; Surgery; Admitting Provider Student in an Organized Health Care Education/Training Program; Emergency Provider Emergency Medicine; PCP Pediatrics; Visit Provider Student in an Organized Health Care Education/Training Program
PROC: 0DJ08ZZ Inspection of Upper Intestinal Tract, Via Natural or Artificial Opening Endoscopic (ICD-10-PCS; principal; 2024-12-30 07:30)
DX: K92.1 Melena (principal); J44.1 Chronic obstructive pulmonary disease with (acute) exacerbation; R11.2 Nausea with vomiting, unspecified; K25.9 Gastric ulcer, unspecified as acute or chronic, without hemorrhage or perforation; K44.9 Diaphragmatic hernia without obstruction or gangrene; I95.9 Hypotension, unspecified; F17.210 Nicotine dependence, cigarettes, uncomplicated; M54.50 Low back pain, unspecified; Z79.51 Long term (current) use of inhaled steroids; Z79.899 Other long term (current) drug therapy
CPT/HCPCS: 36415; 71045; 74177; 76705; 80053; 82272; 82803; 83605; 83690; 83735; 85014; 85018; 85025; 85610; 86850; 87040; 87507; 93005; 94640; 99285; G0328; J0171; J0574; J2543; J3475; J7030; J7120; J7614; J7644; Q9967

== ENCOUNTER 2025-01-03 15:05 | Outpatient (CLI) | payer BC, SELFPAY ==
[2025-01-03 15:26] LABS: Hematocrit 28.6 % (42.0-52.0); Hemoglobin 9.7 g/dL (14.1-18.0)
== END 2025-01-03 23:59 | disposition home or self-care (01) ==
LOC: LAB 15:07
PROVIDERS: PCP Pediatrics; Visit Provider Surgery
DX: K25.9 Gastric ulcer, unspecified as acute or chronic, without hemorrhage or perforation (principal)
CPT/HCPCS: 36415; 85014; 85018

== ENCOUNTER 2025-01-18 09:29 | Outpatient (CLI) | payer BC, SELFPAY ==
[2025-01-18 09:41] LABS: Hematocrit 36.9 % (42.0-52.0); Hemoglobin 11.4 g/dL (14.1-18.0)
== END 2025-01-18 23:59 | disposition home or self-care (01) ==
LOC: LAB 09:31
PROVIDERS: PCP Pediatrics; Visit Provider Surgery
DX: K25.3 Acute gastric ulcer without hemorrhage or perforation (principal)
CPT/HCPCS: 36415; 85014; 85018

== ENCOUNTER → 2025-02-20 10:22 | Day surgery (SDC) | payer BC, SELFPAY ==
[2025-02-19 13:06] VITALS: BMI 29.6
[2025-02-20 10:40] VITALS: BP 185/92; PULSE 101; RESP 18; TEMP 37.2; O2SAT 90
--- NOTE | 2025-02-20 10:43 | EXP.GEN.HP ---
HPI HPI HPI: This is a 54-year-old gentleman who returns for repeat esophagogastroduodenoscopy. In December of this year he was diagnosed with pyloric channel ulcer and underwent epinephrine injection. He is continuing on proton pump inhibition/Carafate. [facility] Disclaimer: The information contained in this section may have been updated after the patient was seen, as this information can be updated by other users. Medical History Encounter for CDL (commercial driving license) exam Chronic back pain Surgical History Previous back surgery H/O arthroscopy of shoulder Family History No significant family history Social History (Updated 02/20/25 @ 10:41 by Margarette Iraheta RN) Smoking Status: Current every day smoker tobacco type: cigarettes packs per day: 1 alcohol intake: never substance use type: denies use current occupational status: employed Travel in the last 8 weeks: None Have you lived/traveled outside [place] in past 30 days?: No Contact w/someone who lives/traveled outside [place] past 30 days?: No Exposure to someone with infectious disease in past 14 days?: No Do you have a fever (greater than 100.4 F or 38 C)?: No Have you tested positive for COVID-19: No Exposed to someone with COVID-19 in past 14 days?: No Do you have a sore throat?: No Do you have a cough?: No Do you have any weakness?: No Are you experiencing any nausea/vomitting?: No Do you have any diarrhea?: No Are you experiencing any unusual bleeding?: No Do you have any muscle aches/pain?: No Do you have any abdominal pain?: No Are you experiencing loss of taste or smell?: No Other Medical History Have you received the Flu Vaccine for this season: No Have you received the Pneumonia Vaccine: No Review of Systems Review of Systems Review of systems:: pertinent systems reviewed and negative unless documented below Meds Home Medications and Allergies Home Medications ?Medication ?Instructions ?Recorded ?Confirmed ?Type budesonide-formoterol HFA 160 2 inh inhalation DAILY 12/29/24 02/20/25 History mcg-4.5 mcg/actuation aerosol inhaler (Symbicort) buprenorphine 8 mg-naloxone 2 mg 2 film sublingual DAILY 12/29/24 02/20/25 History sublingual film ergocalciferol (vitamin D2) 1,250 1,250 mcg PO WEEKLY 12/29/24 02/20/25 History mcg (50,000 unit) capsule gabapentin 800 mg tablet 800 mg PO TID 12/29/24 02/20/25 History rosuvastatin 10 mg tablet 10 mg PO DAILY 12/29/24 02/20/25 History testosterone 20.25 mg topical DAILY 12/29/24 02/20/25 History pantoprazole 40 mg tablet,delayed 40 mg PO BID 30 days #60 tabs 01/01/25 02/20/25 Rx release (Protonix) sucralfate 1 gram tablet (Carafate) 1 g PO .nightly #30 tabs 01/01/25 02/20/25 Rx New Prescriptions to Start Prescriptions: Allergies Allergy/AdvReac Type Severity Reaction Status Date / Time No Known Allergies Allergy Verified 02/20/25 10:37 Exam Data for Last 24 hours I & O for Last 24 hours: Intake & Output 02/17/25 02/18/25 02/19/25 02/20/25 11:59 11:59 11:59 11:59 Weight 195 lb Constitutional Constitutional: no acute distress *Routine HEENT Exam Head: Present normocephalic Eye: Present EOMI ENT: Present mucous membranes moist *Routine Respiratory Exam Respiratory: Absent respiratory distress *Routine Cardiovascular Exam Cardiovascular: Absent tachycardia *Routine Abdominal Exam Abdominal: Present soft *Routine Rectal Exam Rectal:: deferred *Routine Genitalia Exam Genitalia:: deferred Assessment and Plan *Assessment and plan (1) Pyloric channel ulcer: Status: Acute Qualifiers: Gastric ulcer chronicity: acute Qualified Code(s): K25.3 - Acute gastric ulcer without hemorrhage or perforation Category: Medical Code(s): K25.9 - Gastric ulcer, unspecified as acute or chronic, without hemorrhage or perforation Plan: Repeat esophagogastroduodenoscopy today I have discussed the risks and benefits including, but not limited to: Bleeding Infection Damage to surrounding tissue Inherent risks of sedation The patient agrees to proceed.
--- NOTE | 2025-02-20 10:45 | HMH.SCOPE ---
Procedure: Date: 02/20/25 Patient Date of :: 1970 Procedure Performed:: Esophagogastroduodenoscopy with biopsy Indications:: Pyloric channel ulcer Pyloric channel crater ulceration diagnosed on December 30, 2024 per esophagogastroduodenoscopy. Epinephrine injected completed at that time. Sliding hiatal hernia also noted. Performing Provider:: Isaías Tomlin MD Referring Provider:: . Sedation:: Monitored anesthesia care Procedure:: After informed consent was obtained the patient was taken to the endoscopy suite. Sedation ensued after the patient was transferred to the left lateral decubitus position. Pulse, blood pressure, and oxygen saturation were monitored throughout the procedure. The endoscope was advanced beyond the duodenal bulb. Retroflexion within the gastric lumen was accomplished. The gastroscope was carefully removed and the patient was transferred to recovery in stable condition. Please see findings and specimens below for detail. Findings:: Unchanged sliding hiatal hernia Moderate streaking distal gastritis Punctate/shallow remaining ulcer in distal antrum Near resolution of complex crater pyloric channel ulcer Specimens:: Antral biopsy Recommendations:: Follow-up pathology Continue medical management Complications:: No immediate Estimated blood obtained (mL): 1 Colonoscopy Component Colonoscopy Component Was a colonoscopy performed during today's procedure?: No
[2025-02-20] MEDS: LACTATED RINGERS 1000ML 1,000 ML 50 ML IV (10:49)
--- NOTE | 2025-02-20 10:53 | P.PNANES_ITS ---
[facility] Disclaimer: The information contained in this section may have been updated after the patient was seen, as this information can be updated by other users. Medical History Encounter for CDL (commercial driving license) exam Chronic back pain Surgical History Previous back surgery H/O arthroscopy of shoulder Family History Other No significant family history Social History (Updated 02/20/25 @ 10:41 by Margarette Iraheta RN) Smoking Status: Current every day smoker tobacco type: cigarettes packs per day: 1 alcohol intake: never substance use type: denies use current occupational status: employed Travel in the last 8 weeks: None caffeine: Yes Have you lived/traveled outside [place] in past 30 days?: No Contact w/someone who lives/traveled outside [place] past 30 days?: No Exposure to someone with infectious disease in past 14 days?: No Do you have a fever (greater than 100.4 F or 38 C)?: No Have you tested positive for COVID-19: No Exposed to someone with COVID-19 in past 14 days?: No Do you have a sore throat?: No Do you have a cough?: No Do you have any weakness?: No Are you experiencing any nausea/vomitting?: No Do you have any diarrhea?: No Are you experiencing any unusual bleeding?: No Do you have any muscle aches/pain?: No Do you have any abdominal pain?: No Are you experiencing loss of taste or smell?: No [facility] Anesthesia Checklist Patient Identification Patient Identification: Arm Band Structural Data Admitted From: Home Planned Operative Procedure/s: EGD Consent for Planned Operative Procedure(s) Verified: Yes Verified Documents: Surgical Consent and History and Physical NPO Status Verified Time NPO: 00:00 Additional verifications Anesthesia Reactions: No Airway Assessment Mallampati Score:: Class II C-Spine Mobility Assessed: Yes TMJ Mobility Assessed: Yes Dentition: Dentures-good fit (removed) Neurological Assessment Level of Consciousness: Awake, Alert and Appropriate Anesthesia Plan Anesthesia Risk discussed: Yes Anesthesia Plan: Verified ASA Class: II Anesthesia Type: MAC
[2025-02-20 10:56] VITALS: O2SAT 90
[2025-02-20 11:10] VITALS: BP 127/81; PULSE 104; RESP 17; TEMP 37.3; O2SAT 91
[2025-02-20 11:20] VITALS: BP 143/91; PULSE 81; RESP 17; O2SAT 95
[2025-02-20 11:30] VITALS: BP 147/83; PULSE 82; RESP 18; O2SAT 96
[2025-02-20 11:40] VITALS: BP 140/76; PULSE 80; RESP 17; O2SAT 96
== END | disposition home or self-care (01) ==
PROVIDERS: PCP Pediatrics; Visit Provider Surgery
PROC: 0DJ08ZZ Inspection of Upper Intestinal Tract, Via Natural or Artificial Opening Endoscopic (ICD-10-PCS; CPT 43239; principal; 2025-02-20 11:30)
DX: K44.9 Diaphragmatic hernia without obstruction or gangrene (principal); K29.70 Gastritis, unspecified, without bleeding; K25.3 Acute gastric ulcer without hemorrhage or perforation
CPT/HCPCS: 43239; J7120